=== PATIENT | female | born 1940 | race Caucasian/White ===

== ENCOUNTER 2020-09-16 02:28 | Observation (INO) | payer MEDICARE, OTHER ==
[~2020-09-16] VITALS: Ht 160 cm; Wt 57.5 kg
[2020-09-16] MEDS ORDERED: fentaNYL INJECTION 100 MCG/2 ML AMP IVP STA ×2 (02:40→05:04)
[2020-09-16] MEDS ORDERED: ONDANSETRON 4 MG/2 ML (SDV) Z0FRAN ONE (02:51)
--- NOTE | 2020-09-16 02:52 | ED Fall/Injury ---
General Stated Complaint: FALL, (L) HIP/KNEE PAIN Source: patient, family, EMS History of Present Illness Date Seen by Provider: Sep 16, 2020 Time Seen by Provider: 02:30 Initial Comments 80 yo female presenting by EMS after having a fall in the afternoon at home. She has had increasing pain to left hip, thigh and knee throughout the evening and night. She has severe spasm and pain with trying to move her left leg. She denies hitting her head or losing consciousness. She initially was able to get up and bear some weight on her left leg. She denies other injuries. She states the pain feels similar to when she had hip fracture on the right side. Occurred: this afternoon Severity: severe Injuries/Pain Location: lower extremity Context: tripped Loss of Consciousness: no loss of consciousness Modifying Factors: Improves With Immobilization; Worse With Movement Associated Symptoms (Fall): No Abdominal Pain, No Chest Pain, No Confusion, No Dizziness, No Headache, No Lightheadedness; Muscle Spasms; No Nausea/Vomiting, No Neck Pain, No Ringing in Ears, No Seizures, No Shortness of Air, No Slurred Speech; Trouble Walking Allergies and Home Medications Allergies Coded Allergies: No Known Drug Allergies (Unverified , 09/16/20) Patient Home Medication List Home Medication List Reviewed: Yes Review of Systems Review of Systems Constitutional: No chills, No fever Eyes: No Symptoms Reported Ears, Nose, Mouth, Throat: no symptoms reported Respiratory: no symptoms reported Cardiovascular: no symptoms reported Gastrointestinal: no symptoms reported Genitourinary: no symptoms reported Musculoskeletal: see HPI Skin: no symptoms reported Psychiatric/Neurological: No Symptoms Reported Past Hvhaxpx-Cajjng-Ptlvbu Hx Past Med/Social Hx: Reviewed Nursing Past Med/Soc Hx Past Medical History Surgeries: Yes Joint Replacement (right hip) Musculoskeletal: Yes Osteoporosis, Arthritis, Rheumatoid Arthritis Physical Exam Vital Signs Vital Signs - First Documented 09/16/20 02:28 Temp 36.8 Pulse 73 Resp 16 B/P (MAP) 164/76 (105) Pulse Ox 97 O2 Delivery Room Air Capillary Refill : Height, Weight, BMI Height: '" Weight: lbs. oz. kg; BMI Method: General Appearance: WD/WN HEENT: PERRL/EOMI Neck: non-tender, supple Cardiovascular: normal peripheral pulses, regular rate, rhythm, systolic murmur Respiratory: chest non-tender, decreased breath sounds Gastrointestinal: normal bowel sounds, soft, no pulsatile mass Rectal: deferred Extremities: normal capillary refill, pelvis stable, other (left hip pain worse with movement or palpation) Neurologic/Psychiatric: alert, oriented x 3 Skin: warm/dry [employer] Coma Score Best Eye Response: (4) Open Spontaneously Best Verbal Response: (5) Oriented Best Motor Response: (6) Obeys Commands [place] Total: 15 Progress/Results/Core Measures Results/Orders Lab Results Laboratory Tests Test 09/16/20 02:47 Range/Units White Blood Count 9.4 4.3-11.0 10^3/uL Red Blood Count 4.21 L 4.35-5.85 10^6/uL Hemoglobin 14.0 11.5-16.0 G/DL Hematocrit 42 35-52 % Mean Corpuscular Volume 100 H 80-99 FL Mean Corpuscular Hemoglobin 33 25-34 PG Mean Corpuscular Hemoglobin Concent 33 32-36 G/DL Red Cell Distribution Width 13.4 10.0-14.5 % Platelet Count 265 130-400 10^3/uL Mean Platelet Volume 10.7 H 7.4-10.4 FL Immature Granulocyte % (Auto) 0 % Neutrophils (%) (Auto) 83 H 42-75 % Lymphocytes (%) (Auto) 9 L 12-44 % Monocytes (%) (Auto) 7 0-12 % Eosinophils (%) (Auto) 0 0-10 % Basophils (%) (Auto) 1 0-10 % Neutrophils # (Auto) 7.7 1.8-7.8 X 10^3 Lymphocytes # (Auto) 0.8 L 1.0-4.0 X 10^3 Monocytes # (Auto) 0.7 0.0-1.0 X 10^3 Eosinophils # (Auto) 0.0 0.0-0.3 10^3/uL Basophils # (Auto) 0.1 0.0-0.1 10^3/uL Immature Granulocyte # (Auto) 0.0 0.0-0.1 10^3/uL Prothrombin Time 13.2 12.2-14.7 SEC INR Comment 1.0 0.8-1.4 Activated Partial Thromboplast Time 24 24-35 SEC Sodium Level 138 135-145 MMOL/L Potassium Level 3.9 3.6-5.0 MMOL/L Chloride Level 103 98-107 MMOL/L Carbon Dioxide Level 21 21-32 MMOL/L Anion Gap 14 5-14 MMOL/L Blood Urea Nitrogen 11 7-18 MG/DL Creatinine 0.71 0.60-1.30 MG/DL Estimat Glomerular Filtration Rate > 60 BUN/Creatinine Ratio 15 Glucose Level 118 H 70-105 MG/DL Calcium Level 9.0 8.5-10.1 MG/DL Corrected Calcium 9.1 8.5-10.1 MG/DL Total Bilirubin 0.4 0.1-1.0 MG/DL Aspartate Amino Transf (AST/SGOT) 23 5-34 U/L Alanine Aminotransferase (ALT/SGPT) 9 0-55 U/L Alkaline Phosphatase 109 40-136 U/L Total Protein 6.5 6.4-8.2 GM/DL Albumin 3.9 3.2-4.5 GM/DL My Orders Orders - JULIO GAMINO MD Comprehensive Metabolic Panel (09/16/20 02:40) Ua Culture If Indicated (09/16/20 02:40) Ed Iv/Invasive Line Start (09/16/20 02:40) Cbc With Automated Diff (09/16/20 02:40) Ct Pelvis Wo (09/16/20 02:40) Femur 2 View Left (09/16/20 02:40) Partial Thromboplastin Time (09/16/20 02:40) Protime With Inr (09/16/20 02:40) Fentanyl Injection (Sublimaze Injection (09/16/20 02:40) Ondansetron Injection (Zofran Injectio (09/16/20 02:53) Ondansetron Injection (Zofran Injectio (09/16/20 02:51) Ketorolac Injection (Toradol Injection) (09/16/20 04:24) Orphenadrine Inj (Ed Only) (Norflex Inje (09/16/20 04:24) Vital Signs/I&O 09/16/20 02:28 Temp 36.8 Pulse 73 Resp 16 B/P (MAP) 164/76 (105) Pulse Ox 97 O2 Delivery Room Air Progress Progress Note #1: Progress Note obtain basic labs and check CT of pelvis along with femur films to look for fracture or injury to account for her pain. Try fentanyl 50 mcg IV for pain, Zofran 4 mg IV to try and help prevent nausea/vomiting. Progress Note #2: Time: 04:02 Progress Note labs stable without acute significant abnormality. On my review of her left femur she has no acute fracture or dislocation and the hardware from prior hip replacement appears to be intact and in place in the femur. CT pelvis read as no acute fracture. Increased stool in rectum. Despite Fentanyl she was still complaining of severe pain with movement. Progress Note #3: Time: :27 Progress Note pt still having severe pain even with minimal movement and has not been able to get up out of bed due to pain. Will try Toradol and norflex to see if anti- inflammatory with muscle relaxer does better than the fentanyl. D/w Dr. Carlos and if not improved to the point she can go home with meds after this round of medicine will admit for rehab/physical therapy and pain control. Progress Note #4: Time: 05:02 Progress Note pt still with severe pain when she tries to move her leg. She does seem a little more comfortable than before the medicine but she can not move her leg enough to get out of bed or attempt walking at this point. Will proceed with admit for pain control and rehab/PT. If she continues to have such severe pain she might need orthopedic consult or bone scan or other imaging modality to evaluate for fracture or displacement of the hardware from prior hip replacement. Diagnostic Imaging Diagonstic Imaging: CT Plain Films/CT/US/NM/MRI: pelvis Comments No acute fracture. Increased stool burden within the rectum. Read by Dr. Doug Hart MD at [phone] and faxed at [phone] Reviewed: Reviewed [facility] Study Diagonstic Imaging: Xray Plain Films/CT/US/NM/MRI: femur Comments On my review of her left femur she had no acute fracture or dislocation of hardware Departure Communication (Admissions) Time/Spoke to Admitting Phy: 04:27 d/w Dr. Carlos about continued pain for pt so will see how she does with Toradol and Norflex. If not improving to where she can walk and go home will admit to [facility] for pain control, rehab and PT consult. Impression Primary Impression: Left leg pain Additional Impression: Fall at home Qualified Codes: W19.XXXA - Unspecified fall, initial encounter; Y92.009 - Unspecified place in unspecified non-institutional (private) residence as the place of occurrence of the external cause Disposition: 30 STILL A PATIENT Condition: Stable Admissions Decision to Admit Reason: Admit from ER (General) Decision to Admit/Date: Sep 16, 2020 Time/Decision to Admit Time: 04:27 JULIO GAMINO MD Sep 16, 2020 02:52
[2020-09-16] MEDS ORDERED: ONDANSETRON 4 MG/2 ML (SDV) Z0FRAN IVP STA ×2 (02:53→05:04)
[2020-09-16 03:21] LABS: HEMATOCRIT 42 % (35-52); MEAN CORPUSCULAR HEMOGLOBIN 33 PG (25-34); MEAN CORPUSCULAR VOLUME 100 FL (80-99); WHITE BLOOD COUNT 9.4 10^3/uL (4.3-11.0)
[2020-09-16 03:22] LABS: BASOPHILS # (AUTO) 0.1 10^3/uL (0.0-0.1); BASOPHILS % (AUTO) 1 % (0-10); EOSINOPHILS % (AUTO) 0 % (0-10); LYMPHOCYTES # (AUTO) 0.8 X 10^3 (1.0-4.0); LYMPHOCYTES % (AUTO) 9 % (12-44); MEAN CORPUSCULAR HGB CONC 33 G/DL (32-36); MEAN PLATELET VOLUME 10.7 FL (7.4-10.4); MONOCYTES # (AUTO) 0.7 X 10^3 (0.0-1.0); MONOCYTES % (AUTO) 7 % (0-12); NEUTROPHILS # (AUTO) 7.7 X 10^3 (1.8-7.8); NEUTROPHILS % (AUTO) 83 % (42-75); PLATELET COUNT 265 10^3/uL (130-400)
[2020-09-16 03:31] LABS: PROTHROMBIN TIME PATIENT 13.2 SEC (12.2-14.7)
[2020-09-16 03:36] LABS: BUN/CREATININE RATIO 15; CARBON DIOXIDE 21 MMOL/L (21-32); CHLORIDE 103 MMOL/L (98-107); CREATININE SERUM 0.71 MG/DL (0.60-1.30); GFR ESTIMATED > 60; POTASSIUM 3.9 MMOL/L (3.6-5.0); SODIUM 138 MMOL/L (135-145)
[2020-09-16 03:37] LABS: ALANINE AMINOTRANSFERASE 9 U/L (0-55); ALBUMIN 3.9 GM/DL (3.2-4.5); ALKALINE PHOSPHATASE 109 U/L (40-136); BILIRUBIN,TOTAL 0.4 MG/DL (0.1-1.0); GLUCOSE 118 MG/DL (70-105); TOTAL PROTEIN 6.5 GM/DL (6.4-8.2)
[2020-09-16] MEDS ORDERED: ORPHENADRINE 60 MG/2 ML (NORFLEX) AMP (ED ONLY) IVP STA (04:24)
[2020-09-16] MEDS ORDERED: KETOROLAC 30 MG/ML VIAL IVP STA (04:24)
[2020-09-16 06:19] VITALS: BP 148/90
[2020-09-16] MEDS ORDERED: fentaNYL INJECTION 100 MCG/2 ML AMP IVP PRN (06:30)
[2020-09-16] MEDS ORDERED: KETOROLAC 15 MG/ML VIAL IVP PRN (06:30)
[2020-09-16] MEDS ORDERED: ONDANSETRON 4 MG/2 ML (SDV) Z0FRAN IVP PRN (06:30)
--- NOTE | 2020-09-16 06:34 | Diagnostic Imaging Report ---
INDICATION: Left leg injury from a fall AP and lateral views of left thigh show postoperative changes from left hip arthroplasty. There is no acute fracture or dislocation. There is no evidence of loosening. IMPRESSION: Postoperative changes left hip arthroplasty. Left femur otherwise unremarkable. Dictated by: Dictated on workstation # [id number]
[2020-09-16] MEDS: NS IV 1000 ML 1,000 ML IV SCH ×2 (06:35→20:13)
--- NOTE | 2020-09-16 07:24 | Diagnostic Imaging Report ---
EXAMINATION: CT Pelvis without intravenous contrast. TECHNIQUE: Multiple contiguous axial images were obtained through the pelvis without the administration of intravenous contrast. All CT scans use one or more of the following dose optimizing techniques: automated exposure control, MA and/or KvP adjustment based on a patient size and exam type, or iterative reconstruction. HISTORY: fall, left hip pain COMPARISON: Left femur radiograph 09/16/2020. FINDINGS: Visualized portions of the kidneys are normal. There is no hydronephrosis. Urinary bladder is normal. There is moderate amount of stool within the rectal vault. No bowel obstruction. The appendix is normal. No free fluid or air. No pelvic lymphadenopathy. Calcifications of the aorta without aneurysm. There is diffuse osseous demineralization and scattered degenerative changes. Grade 1 anterolisthesis of L5 on S1. Surgical changes from total left hip arthroplasty. No acute fracture, dislocation, or other destructive osseous process. The uterus is surgically absent. IMPRESSION: 1. No acute osseous abnormality of the pelvis. 2. Large stool burden within the rectum. 3. Agree with preliminary interpretation. Dictated by: Dictated on workstation # [id number]
[2020-09-16] MEDS ORDERED: FLU QUAD HIGH DOSE 240 MCG/0.7 ML 2020-21 (FLUZONE) IM ONE (07:30)
[2020-09-16 08:00] VITALS: BP 135/62
[2020-09-16] MEDS ORDERED: ACET-2267 PO (09:57)
[2020-09-16] MEDS ORDERED: CARB15DR OU (09:57)
[2020-09-16] MEDS ORDERED: METH2.5T PO ×2 (09:57)
[2020-09-16] MEDS ORDERED: MULT-1136 PO (09:57)
--- NOTE | 2020-09-16 11:27 | Physical Therapy Evaluation ---
PT Evaluation-General Medical Diagnosis Admission Date Sep 16, 2020 at 04:27 Medical Diagnosis: fall/left LE pain Onset Date: Sep 15, 2020 Therapy Diagnosis Therapy Diagnosis: debility/weakness Precautions Precautions/Isolations: Fall Prevention, Standard Precautions Referral Physician: Breanna Reason for Referral: Evaluation/Treatment Medical History Current History EMS secondary to fall at home resulting in left knee pain Reviewed History: Yes Social History Home: Single Level Current Living Status: Children Entry Into Home: Stairs With Railing PT Steps Into Home: 5 Prior Prior Level of Function SCALE: Activities may be completed with or without assistive devices. 7-Vmpxrbpudt-yxvmpeu completes the activity by him/herself with no assistance from a helper. 5-Set-up or Clean-up Assistance-helper sets up or cleans up; patient completes activity. [place] assists only prior to or following the activity. 4-Supervision or Touching Assistance-helper provides verbal cues and/or touchi ng/steadying and/or contact guard assistance as patient completes activity. Assistance may be provided throughout the activity or intermittently. 3-Partial/Moderate Assistance-helper does LESS THAN HALF the effort. [place] lifts, holds or supports trunk or limbs, but provides less than half the effort. 2-Substantial/Maximal Assistance-helper does MORE THAN HALF the effort. [place] lifts or holds trunk or limbs and provides more than half the effort. 2-Xjemywzhe-rgqjnd does ALL the effort. Patient does none of the effort to complete the activity. Or, the assistance of 2 or more helpers is required for the patient to complete the activity. If activity was not attempted, code reason: 7-Patient Refused. 9-Not Applicable-not attempted and the patient did not perform the activity before the current illness, exacerbation or injury. 10-Not Attempted due to Environmental Limitations-(lack of equipment, weather restraints, etc.). 88-Not Attempted due to Medical Conditions or Safety Concerns. Bed Mobility: 6 Transfers (B,C,W/C): 6 Gait: 6 Stairs: 6 Indoor Mobility (Ambulation): Independent Stairs: Independent Prior Devices Use: Walker PT Evaluation-Current Subjective Patient agrees to PT. Reports 8/10 left knee pain Objective Patient Orientation: Confused Attachments: IV ROM/Strength ROM Lower Extremities bilateral LE WFL Strength Lower Extremities 3+/5 grossly bilateral LE Integumentary/Posture Integumentary refer to nursing notes Bowel Incontinence: No Posture trunk flexed/kyphotic Neuromuscular (Tone, Coordination, Reflexes) grossly intact Sensory Vision: impaired Hearing: Impaired Transfers Sit to Lying (QC): 3 Lying to Sitting/Side of Bed(Q: 3 Sit to Stand (QC): 3 Chair/Gnt-sy-Gfuzv Xfer(QC): 3 Gait Does the Patient Walk?: Yes Mode of Locomotion: Walk Anticipated Mode of Locomotion: Walk Walk 10 feet (QC): 3 Walk 50 ft with 2 Turns(QC): 3 Walk 150 ft (QC): 3 Distance: 150' Gait Assistive Device: FWW Comments/Gait Description slow, extended UE's with FWW use with VC's for body placement in FWW Balance Sitting Static: Normal Sitting Dynamic: Normal Standing Static: Fair Standing Dynamic: Fair Assessment/Needs 80 y.o. female, will benefit from skilled PT to address functional strength and mobility to improve current LOF to safely return to home with family at maximum LOF. Rehab Potential: Fair PT Mcfp Goals Mcfp Goals PT Mcfp Goals Time Frame: Sep 27, 2020 Roll Left & Right (QC): 5 Sit to Lying (QC): 5 Lying-Sitting on Side/Bed(QC): 5 Sit to Stand (QC): 5 Chair/Irp-ro-Sszqi Xfer(QC): 5 Toilet Transfer (QC): 5 Does the Patient Walk: Yes Walk 10 feet (QC): 5 Walk 50ft with 2 Turns (QC): 5 Walk 150 ft (QC): 5 1 Step (curb) (QC): 5 4 Steps (QC): 5 PT Plan Problem List Problem List: Activity Tolerance, Safety Treatment/Plan Treatment Plan: Continue Plan of Care Treatment Plan: Bed Mobility, Education, Functional Activity Haroldo, Functional Strength, Gait, Safety, Therapeutic Exercise, Transfers Treatment Duration: Sep 27, 2020 Frequency: 6 times per week Estimated Hrs Per Day: .25 hour per day Patient and/or Family Agrees t: Yes Time/GCodes Time In: 1020 Time Out: 1036 Total Billed Treatment Time: 16 Total Billed Treatment 1 visit EVModC 16 min SANDRITA ESCALANTE PT Sep 16, 2020 11:27
--- NOTE | 2020-09-16 11:31 | History & Physical ---
HPI History of Present Illness: 80 yo F that presented with uncontrolled hip pain after a fall on Tuesday. Patient states that she felt some dizziness but denies tripping over anything when she fell. Denies any shortness of breath or chest pain. She has had a hip replacement on the left hip previously. She tried some tylenol at home but it was not helping. She is not able to move her hip around like normal and has acute pain with movement. No swelling or bruising. Source: patient Exam Limitations: no limitations Date seen by provider: Sep 16, 2020 Time Seen by Provider: 10:00 Attending Physician Yeimi Carlos MD PCP Melissa Crouch Consult Date of Admission Sep 16, 2020 at 04:27 Home Medications Home Medications Reviewed patient Home Medication Reconciliation performed by pharmacy medication reconciliations railway signal technician and/or nursing. Patients Allergies have been reviewed. Allergies Coded Allergies: No Known Drug Allergies (Unverified , 09/16/20) OKH-Ysvnzt-Jvppkf Hx Patient Social History Living Status: Home Smoking Status: Current Everyday Smoker 2nd Hand Smoke Exposure: Yes Alcohol Use?: No Tobacco type used: Cigarettes Have you traveled recently?: No Past Medical History Rheumatoid Arthritis Previous Left Hip replacement Family Medical History Significant Family History: No Pertinent Family Hx Review of Systems ([facility]) Constitutional: No chills, No malaise; weakness EENTM: no symptoms reported Respiratory: no symptoms reported; No cough, No dyspnea on exertion, No short of breath Cardiovascular: no symptoms reported; No chest pain, No edema, No palpitations Gastrointestinal: no symptoms reported; No abdominal pain, No constipation, No diarrhea, No loss of appetite, No nausea, No vomiting Genitourinary: no symptoms reported; No dysuria, No frequency, No hematuria : No Musculoskeletal: joint pain; No joint swelling; muscle weakness Skin: no symptoms reported; No lesions, No rash Psychiatric/Neurological: No Symptoms Reported Reviewed Test Results Reviewed Test Results Lab Laboratory Tests Test 09/16/20 02:47 Range/Units White Blood Count 9.4 4.3-11.0 10^3/uL Red Blood Count 4.21 L 4.35-5.85 10^6/uL Hemoglobin 14.0 11.5-16.0 G/DL Hematocrit 42 35-52 % Mean Corpuscular Volume 100 H 80-99 FL Mean Corpuscular Hemoglobin 33 25-34 PG Mean Corpuscular Hemoglobin Concent 33 32-36 G/DL Red Cell Distribution Width 13.4 10.0-14.5 % Platelet Count 265 130-400 10^3/uL Mean Platelet Volume 10.7 H 7.4-10.4 FL Immature Granulocyte % (Auto) 0 % Neutrophils (%) (Auto) 83 H 42-75 % Lymphocytes (%) (Auto) 9 L 12-44 % Monocytes (%) (Auto) 7 0-12 % Eosinophils (%) (Auto) 0 0-10 % Basophils (%) (Auto) 1 0-10 % Neutrophils # (Auto) 7.7 1.8-7.8 X 10^3 Lymphocytes # (Auto) 0.8 L 1.0-4.0 X 10^3 Monocytes # (Auto) 0.7 0.0-1.0 X 10^3 Eosinophils # (Auto) 0.0 0.0-0.3 10^3/uL Basophils # (Auto) 0.1 0.0-0.1 10^3/uL Immature Granulocyte # (Auto) 0.0 0.0-0.1 10^3/uL Prothrombin Time 13.2 12.2-14.7 SEC INR Comment 1.0 0.8-1.4 Activated Partial Thromboplast Time 24 24-35 SEC Sodium Level 138 135-145 MMOL/L Potassium Level 3.9 3.6-5.0 MMOL/L Chloride Level 103 98-107 MMOL/L Carbon Dioxide Level 21 21-32 MMOL/L Anion Gap 14 5-14 MMOL/L Blood Urea Nitrogen 11 7-18 MG/DL Creatinine 0.71 0.60-1.30 MG/DL Estimat Glomerular Filtration Rate > 60 BUN/Creatinine Ratio 15 Glucose Level 118 H 70-105 MG/DL Calcium Level 9.0 8.5-10.1 MG/DL Corrected Calcium 9.1 8.5-10.1 MG/DL Total Bilirubin 0.4 0.1-1.0 MG/DL Aspartate Amino Transf (AST/SGOT) 23 5-34 U/L Alanine Aminotransferase (ALT/SGPT) 9 0-55 U/L Alkaline Phosphatase 109 40-136 U/L Total Protein 6.5 6.4-8.2 GM/DL Albumin 3.9 3.2-4.5 GM/DL Physical Exam-([facility]) Physical Exam Vital Signs VS - Last 72 Hours, by Label 09/16/20 09/16/20 09/16/20 09/16/20 02:28 05:16 06:19 06:36 Temp 36.8 36.4 Pulse 73 62 69 Resp 16 18 20 B/P (MAP) 164/76 (105) 131/86 148/90 (109) Pulse Ox 97 96 96 96 O2 Delivery Room Air Room Air Room Air Room Air 09/16/20 08:00 Temp 35.7 Pulse 58 Resp 16 B/P (MAP) 135/62 (86) Pulse Ox 96 O2 Delivery Room Air Capillary Refill : Less Than 3 SecondsLess Than 3 Seconds General Appearance: WD/WN, no apparent distress, thin HEENT: PERRL/EOMI Neck: non-tender, full range of motion, supple Respiratory: chest non-tender, lungs clear, normal breath sounds, no respiratory distress, no accessory muscle use Cardiovascular: normal peripheral pulses, regular rate, rhythm, no edema, no murmur Gastrointestinal: normal bowel sounds, non tender, soft Back: no CVA tenderness, no vertebral tenderness Extremities: no pedal edema, no calf tenderness, normal capillary refill Neurologic/Psychiatric: entertainment reporter II-XII nml as tested, alert, oriented x 3, other (Pain with ROM left hip and knee, normal sensation, decreased strength, no brusising or swelling) Skin: normal color, warm/dry Lymphatic: no adenopathy Assessment/Plan Assessment/Plan Admission Status: Observation (1) Left leg pain Status: Acute Assessment & Plan: - PT/OT ordered, IRF evaluation, Started on norco and colace, reviewed imaging and no acute fracture or displacement (2) Fall at home Status: Acute Qualifiers: Qualified Codes: W19.XXXA - Unspecified fall, initial encounter; Y92.009 - Unspecified place in unspecified non-institutional (private) residence as the place of occurrence of the external cause (3) Rheumatoid arthritis Status: Chronic Assessment & Plan: - Continue home meds (4) DVT prophylaxis Status: Acute Assessment & Plan: - Lovenox Copy Copies To 1: [facility], YEIMI Sanchez MD Sep 16, 2020 11:31
[2020-09-16 12:00] VITALS: BP 104/51
[2020-09-16] MEDS: ENOXAPARIN 40 MG/0.4 ML (LOVENOX) SYR SQ SCH (13:22)
[2020-09-16] MEDS: HYDROcodone/APAP 5 MG/325 MG (LORTAB) TAB PO PRN (15:57)
[2020-09-16 16:00] VITALS: BP 114/65
[2020-09-16 20:00] VITALS: BP 109/61
[2020-09-16] MEDS: DOCUSATE SODIUM 100 MG (COLACE) CAP PO SCH (20:15)
[2020-09-17] VITALS: BP 131/61
[2020-09-17] MEDS: HYDROcodone/APAP 5 MG/325 MG (LORTAB) TAB PO PRN (03:49)
[2020-09-17 04:04] VITALS: BP 144/65
[2020-09-17 08:00] VITALS: BP 158/75
[2020-09-17] MEDS: DOCUSATE SODIUM 100 MG (COLACE) CAP PO SCH ×2 (09:41→21:28)
[2020-09-17] MEDS: NS IV 1000 ML 1,000 ML IV SCH ×2 (10:19→23:27)
--- NOTE | 2020-09-17 11:14 | Physical Therapy Daily Note ---
PT Daily Note-Current Subjective Pt in bed, agreeable with encouragement. No pain rated but grimaces and groans with weight-bearing. Unable to localize pain when asked. Mental Status Patient Orientation: Person, Confused Attachments: IV Transfers SCALE: Activities may be completed with or without assistive devices. 3-Pxvczrknrs-jmzkgvg completes the activity by him/herself with no assistance from a helper. 5-Set-up or Clean-up Assistance-helper sets up or cleans up; patient completes activity. [place] assists only prior to or following the activity. 4-Supervision or Touching Assistance-helper provides verbal cues and/or touching/steadying and/or contact guard assistance as patient completes activity. Assistance may be provided throughout the activity or intermittently. 3-Partial/Moderate Assistance-helper does LESS THAN HALF the effort. [place] lifts, holds or supports trunk or limbs, but provides less than half the effort. 2-Substantial/Maximal Assistance-helper does MORE THAN HALF the effort. [place] l ifts or holds trunk or limbs and provides more than half the effort. 3-Ymbgizgmx-kicezw does ALL the effort. Patient does none of the effort to complete the activity. Or, the assistance of 2 or more helpers is required for the patient to complete the activity. If activity was not attempted, code reason: 7-Patient Refused. 9-Not Applicable-not attempted and the patient did not perform the activity before the current illness, exacerbation or injury. 10-Not Attempted due to Environmental Limitations-(lack of equipment, weather restraints, etc.). 88-Not Attempted due to Medical Conditions or Safety Concerns. Lying to Sitting/Side of Bed(Q: 3 Sit to Stand (QC): 3 (Initially retropulsive) Weight Bearing Right Lower Extremity: Right Full Weight Bearing Left Lower Extremity: Left Full Weight Bearing Gait Training Does the Patient Walk?: Yes Distance: 80 Walk 10 feet (QC): 4 Walk 50 ft with 2 Turns(QC): 4 Walk 150 ft (QC): 88 Walking 10ft/uneven surface-QC: 88 Gait Persons Needed: 1 Gait Assistive Device: FWW Pt ambulated 80' x 1 with FWW with CGA-min A x 1. Pt ambulates with flexed posture, (B) UE extended. Large, unequal step length, VCS to maintain posture within FWW to allow WBing through UE to decrease pain in (L) LE. Limited correction seen with VCS, demonstration. Treatments Gait training with FWW. Pt up in shower chair with NA present post treatment. Assessment Current Status: Fair Progress Pt tolerated fair-well. Very slow, antalgic gait but no miri LOB, CGA for safety. PT [facility] Goals [facility] Goals PT [employer] Goals Time Frame: Sep 27, 2020 Roll Left & Right (QC): 5 Sit to Lying (QC): 5 Lying-Sitting on Side/Bed(QC): 5 Sit to Stand (QC): 5 Chair/Blz-oy-Dmxpp Xfer(QC): 5 Toilet Transfer (QC): 5 Does the Patient Walk: Yes Walk 10 feet (QC): 5 Walk 50ft with 2 Turns (QC): 5 Walk 150 ft (QC): 5 1 Step (curb) (QC): 5 4 Steps (QC): 5 PT Plan Problem List Problem List: Activity Tolerance, Functional Strength, Safety, Balance, Gait, Transfer, Bed Mobility, ROM Treatment/Plan Treatment Plan: Continue Plan of Care Treatment Plan: Bed Mobility, Education, Functional Activity Haroldo, Functional Strength, Gait, Safety, Therapeutic Exercise, Transfers Treatment Duration: Sep 27, 2020 Frequency: 6 times per week Estimated Hrs Per Day: .25 hour per day Patient and/or Family Agrees t: Yes Safety Risks/Education Patient Education: Gait Training Teaching Recipient: Patient Teaching Methods: Demonstration, Discussion Response to Teaching: Reinforcement Needed Discharge Recommendations Barriers to Progress LE pain, Pt confused Time/GCodes Time In: 1013 Time Out: 1036 Total Billed Treatment Time: 23 Total Billed Treatment 1, GT x 23' FARSHAD GORDON DPJuanjose Sep 17, 2020 11:14
[2020-09-17] MEDS: ENOXAPARIN 40 MG/0.4 ML (LOVENOX) SYR SQ SCH (11:51)
[2020-09-17 12:00] VITALS: BP 132/55
--- NOTE | 2020-09-17 15:05 | Progress Note ---
Subjective Subjective/Events-last exam Patient doing well this AM. Up walking with PT with minimal help. Tolerating PO diet. Review of Systems Pulmonary: No Dyspnea, No Cough Cardiovascular: No: Chest Pain, Palpitations Gastrointestinal: No: Nausea, Vomiting, Abdominal Pain Musculoskeletal: leg pain Neurological: Weakness, Incoordination Objective Exam Last Set of Vital Signs Vital Signs Date Time Temp Pulse Resp B/P (MAP) Pulse Ox O2 Delivery O2 Flow Rate FiO2 09/17/20 12:00 35.8 55 18 132/55 (80) 96 Room Air Capillary Refill : Less Than 3 SecondsLess Than 3 Seconds I&O Intake and Output 09/16/20 23:59 Intake Total 1480 ml Output Total 150 ml Balance 1330 ml Intake Oral 1480 ml Output Urine Total 150 ml # Voids 2 Daily Weight Change Unsure General: Alert, Oriented X3, No Acute Distress Lungs: Clear to Auscultation, Normal Air Movement Heart: Regular Rate, No Murmurs Abdomen: Normal Bowel Sounds, Soft, No Tenderness, No Masses Extremities: No Edema, No Tenderness/Swelling Neuro: Normal Speech, Sensation Intact, Cranial Nerves 3-12 NL, Other (slow gait) Psych/Mental Status: Mental Status NL, Mood NL Assessment/Plan Assessment/Plan (1) Left leg pain Status: Acute Assessment & Plan: - PT/OT ordered, IRF evaluation, Started on norco and colace, reviewed imaging and no acute fracture or displacement 09/17: IRF denied patient, will continue to work with PT, plan for home tomorrow with for PT (2) Fall at home Status: Acute Qualifiers: Qualified Codes: W19.XXXA - Unspecified fall, initial encounter; Y92.009 - Unspecified place in unspecified non-institutional (private) residence as the place of occurrence of the external cause (3) Rheumatoid arthritis Status: Chronic Assessment & Plan: - Continue home meds (4) DVT prophylaxis Status: Acute Assessment & Plan: - YEIMI Moya MD Sep 17, 2020 15:04
[2020-09-17 15:50] VITALS: BP 125/60
[2020-09-17 19:54] VITALS: BP 143/70
[2020-09-18] VITALS: BP 137/63
[2020-09-18 04:00] VITALS: BP 141/68
[2020-09-18 08:00] VITALS: BP 167/77
[2020-09-18] MEDS: DOCUSATE SODIUM 100 MG (COLACE) CAP PO SCH (08:43)
[2020-09-18] MEDS ORDERED: ACETAMINOPHEN 500 MG TAB (TYLENOL) PO PRN (09:45)
--- NOTE | 2020-09-18 09:53 | Physical Therapy Daily Note ---
PT Daily Note-Current Subjective Patient denies knee pain on this date. Agrees to PT. Patient states, she hopes to go home today. Mental Status Patient Orientation: Normal For Age Transfers SCALE: Activities may be completed with or without assistive devices. 4-Atpnbdzfuw-xcjpmfh completes the activity by him/herself with no assistance from a helper. 5-Set-up or Clean-up Assistance-helper sets up or cleans up; patient completes activity. [place] assists only prior to or following the activity. 4-Supervision or Touching Assistance-helper provides verbal cues and/or touching/steadying and/or contact guard assistance as patient completes activity. Assistance may be provided throughout the activity or intermittently. 3-Partial/Moderate Assistance-helper does LESS THAN HALF the effort. [place] lifts, holds or supports trunk or limbs, but provides less than half the effort. 2-Substantial/Maximal Assistance-helper does MORE THAN HALF the effort. [place] lifts or holds trunk or limbs and provides more than half the effort. 5-Lqudouzvf-ucfdyt does ALL the effort. Patient does none of the effort to complete the activity. Or, the assistance of 2 or more helpers is required for the patient to complete the activity. If activity was not attempted, code reason: 7-Patient Refused. 9-Not Applicable-not attempted and the patient did not perform the activity before the current illness, exacerbation or injury. 10-Not Attempted due to Environmental Limitations-(lack of equipment, weather restraints, etc.). 88-Not Attempted due to Medical Conditions or Safety Concerns. Sit to Stand (QC): 4 Toilet Transfer (QC): 4 Weight Bearing Right Lower Extremity: Right Full Weight Bearing Left Lower Extremity: Left Full Weight Bearing Gait Training Does the Patient Walk?: Yes Distance: 200' Walk 10 feet (QC): 4 Walk 50 ft with 2 Turns(QC): 4 Walk 150 ft (QC): 4 Gait Assistive Device: FWW slow, steady with no deviation Assessment patient much improved on this date with denial of knee pain. Plan dismissal to home with family and home health per report and SW. PT Care Home Goals Care Home Goals PT Care Home Goals Time Frame: Sep 27, 2020 Roll Left & Right (QC): 5 Sit to Lying (QC): 5 Lying-Sitting on Side/Bed(QC): 5 Sit to Stand (QC): 5 Chair/Kcr-zv-Diwua Xfer(QC): 5 Toilet Transfer (QC): 5 Does the Patient Walk: Yes Walk 10 feet (QC): 5 Walk 50ft with 2 Turns (QC): 5 Walk 150 ft (QC): 5 1 Step (curb) (QC): 5 4 Steps (QC): 5 PT Plan Treatment/Plan Treatment Plan: Continue Plan of Care Treatment Plan: Bed Mobility, Education, Functional Activity [place], Functional Strength, Gait, Safety, Therapeutic Exercise, Transfers Treatment Duration: Sep 27, 2020 Frequency: 6 times per week Estimated Hrs Per Day: .25 hour per day Patient and/or Family Agrees t: Yes Time/GCodes Time In: 929 Time Out: 944 Total Billed Treatment Time: 15 Total Billed Treatment 1 visit FA 15 min SANDRITA ESCALANTE PT Sep 18, 2020 09:53
[2020-09-18] MEDS ORDERED: BISACODYL 10 MG SUPP (DULCOLAX) PR NR (10:45)
[2020-09-18] MEDS: ENOXAPARIN 40 MG/0.4 ML (LOVENOX) SYR SQ SCH (11:55)
[2020-09-18 12:00] VITALS: BP 164/72
--- NOTE | 2020-09-18 12:04 | Discharge Summary ---
Diagnosis/Chief Complaint Date of Admission Sep 16, 2020 at 04:27 Date of Discharge 09/18/2020 Admission Diagnosis Admission Diagnosis See Below Discharge Diagnosis See Problem list Problems/Diagnosis: (1) Left leg pain Assessment & Plan: - PT/OT ordered, IRF evaluation, Started on norco and colace, reviewed imaging and no acute fracture or displacement 09/17: IRF denied patient, will continue to work with PT, plan for home tomorrow with HH for PT 09/18: Home today with HH Status: Acute (2) Fall at home Qualifiers: Qualified Codes: W19.XXXA - Unspecified fall, initial encounter; Y92.009 - Unspecified place in unspecified non-institutional (private) residence as the place of occurrence of the external cause Status: Acute (3) Rheumatoid arthritis Assessment & Plan: - Continue home meds Status: Chronic (4) DVT prophylaxis Assessment & Plan: - Lovenox Status: Acute Chief Complaint/HPI Chief Complaint/HPI 80 yo F that presented with uncontrolled hip pain after a fall on Tuesday. Patient states that she felt some dizziness but denies tripping over anything when she fell. Denies any shortness of breath or chest pain. She has had a hip replacement on the left hip previously. She tried some tylenol at home but it was not helping. She is not able to move her hip around like normal and has acute pain with movement. No swelling or bruising. Discharge Summary-Simple/Stand Consultations Discharge Physical Examination Allergies: Coded Allergies: No Known Drug Allergies (Unverified , 09/16/20) Vitals & I&Os Vital Sign - Last 12Hours Date Time Temp Pulse Resp B/P (MAP) Pulse Ox O2 Delivery O2 Flow Rate FiO2 09/18/20 08:00 95 Room Air 09/18/20 08:00 35.8 78 18 167/77 (107) Intake and Output 09/18/20 00:00 Intake Total 1520 ml Balance 1520 ml General Appearance: Alert, Oriented X3, Cooperative, No Acute Distress Respiratory: Clear to Auscultation, Normal Air Movement Cardiovascular: Regular Rate, No Murmurs Abdominal: Normal Bowel Sounds, Soft, No Tenderness, No Masses Extremities: No Edema, No Tenderness/Swelling Neuro: Normal Speech, Sensation Intact, Cranial Nerves 3-12 NL, Other (Slow gait) Hospital Course Was the Problem List Reviewed?: Yes See final discharge diagnosis. Discussion & Recommendations 80 yo F with left hip and leg pain after fall. Patient has been up with PT and been doing well. Has walker at home and instructed to use it for safety. Will D/c home with close f.u with PCP. Discharge Condition at discharge Stable Instructions to patient/family Please see electronic discharge instructions given to patient. Discharge Medications Reviewed and agree with Discharge Medication list on patient's Discharge Instruction sheet YEIMI KOLB MD Sep 18, 2020 12:04
--- NOTE | 2020-09-18 12:22 | Discharge Summary ---
Discharge Summary Reconcile Patient Problems Problems Reviewed?: Yes Instructions for Patient Via [employer] [facility], Assessment/Instructions Left Leg pain Fall Debility RA Advanced Age Physician to follow Patient: Buddy Discharge Diet for Home: ADA Diet Hospital Course Date of Admission: Sep 16, 2020 at 04:27 Admission Diagnosis : Family Physician/Provider: Melissa Crouch Date of Discharge: 09/18/20 Discharge Diagnosis: Left Leg Pain Fall Debility Advanced Age Hospital Course: 80 yo that presented with left leg pain following a fall. She was seen by PT and was doing better but required walker. Will send patient home with Labs and Pending Lab Test: Home Meds Active Reported Refresh Tears (Carboxymethylcellulose Sodium) 15 Ml Drops 2 Drops OU PRN PRN Tylenol Extra Strength (Acetaminophen) 500 Mg Tablet 500 Mg PO DAILY Multivitamin 1 Each Tablet 1 Each PO DAILY Methotrexate (Methotrexate Sodium) 2.5 Mg Tablet 2.5 Mg PO WED TAKES 2 (2.5MG) TABS ON TUESDAY AND TUESDAY ALSO TAKES 1 (2.5MG) TAB ON TUESDAY Methotrexate (Methotrexate Sodium) 2.5 Mg Tablet 5 Mg PO TUE,TUE TAKES 2 (2.5MG) TABS ON TUESDAY AND TUESDAY ALSO TAKES 1 (2.5MG) TAB ON TUESDAY Patient Allergies: Coded Allergies: No Known Drug Allergies (Unverified , 09/16/20) Continued Medications: Acetaminophen (Tylenol Extra Strength) 500 Mg Tablet 500 MG PO DAILY, TAB Carboxymethylcellulose Sodium (Refresh Tears) 15 Ml Drops 2 DROPS OU PRN PRN for DRY EYES, DROPS Methotrexate Sodium (Methotrexate) 2.5 Mg Tablet 5 MG PO TUE,TUE, TAB TAKES 2 (2.5MG) TABS ON TUESDAY AND TUESDAY ALSO TAKES 1 (2.5MG) TAB ON TUESDAY Methotrexate Sodium (Methotrexate) 2.5 Mg Tablet 2.5 MG PO WED, TAB TAKES 2 (2.5MG) TABS ON TUESDAY AND TUESDAY ALSO TAKES 1 (2.5MG) TAB ON TUESDAY Multivitamin (Multivitamin) 1 Each Tablet 1 EACH PO DAILY, TAB Home Health Need/Face to Face Date of Face to Face: Sep 18, 2020 Clinical Findings: Generalized weakness and fatigue, Muscle weakness, Unsteady gait I have seen Pt [id number]: Yes Discharged To: Home Diagnosis/Conditions: See Above Patient is Homebound due to: Lars fall risk due to instabilty, Muscle weakness, Pain w/ambulation Homebound Status Due to the above stated illness, injury or surgical procedure (medical condition or diagnosis) and associated clinical findings, the patient is homebound because of his/her inability to leave home except with aid of a supportive device and/or person AND leaving the home requires a considerable and taxing effort or is medically contraindicated. Pt req the following assistanc: Walker Home Health Nursing Orders Home Health Services Order: Nursing Services, Physical Therapy-Evaluate & Treat Home Health Infusion Therapy Line Start Date: Sep 16, 2020 Therapy Orders Therapy Orders: PT to assess for OT Therapy Specific Orders: Eval assistive deivces, Gait training, Increase strength/endurance Certify Stmt I certify that this patient is under my care and that I, a nurse practitioner or a physician; a elementary assistant principal working with me, had a face to face encounter that -m eets the physician face to face encounter requirements with this patient as dated. Discharge Physical Exam General: Alert, Oriented X3, Cooperative, No Acute Distress HEENT: Mucous Memb Moist/[place] Lungs: Clear to Auscultation, Normal Air Movement Heart: Regular Rate, No Murmurs Abdomen: Normal Bowel Sounds, Soft, No Tenderness, No Masses Extremities: No Edema, No Tenderness/Swelling Neuro: Normal Speech, Sensation Intact, Cranial Nerves 3-12 NL YEIMI KOLB MD Sep 18, 2020 12:16
[2020-09-18 15:51] VITALS: BP 159/72
== END 2020-09-18 12:05 | disposition home or self-care (01) ==
LOC: ER FS 02:32 → UNDOADMOB 04:27 → 4TH 04:27 → ER FS 05:33 → 4TH 06:26 → UNDODISOB 09-18 17:51
PROVIDERS: ADMIT Family Medicine; ATTEND Family Medicine
DX: M79.605 Pain in left leg (principal); M06.9 Rheumatoid arthritis, unspecified; R53.81 Other malaise; M81.0 Age-related osteoporosis without current pathological fracture; F17.210 Nicotine dependence, cigarettes, uncomplicated; Z79.899 Other long term (current) drug therapy; W19.XXXA Unspecified fall, initial encounter; Y92.009 Unspecified place in unspecified non-institutional (private) residence as the place of occurrence of the external cause; Z96.643 Presence of artificial hip joint, bilateral
CPT/HCPCS: 36415; 72192; 73552; 80053; 85025; 85610; 85730; 96374; 96375; 96376; 97116; 97162; 97530; 99284; G0008; G0378; 90471; 90662

== ENCOUNTER 2020-10-24 05:38 | Emergency (ER) | payer MEDICARE ==
[~2020-10-24] VITALS: Ht 160 cm; Wt 57.5 kg
[~2020-10-24 05:38] MED LIST: ACET-2267 PO; CARB15DR OU; METH2.5T PO; MULT-1136 PO
[2020-10-24] MEDS ORDERED: fentaNYL INJECTION 100 MCG/2 ML AMP ONE (05:43)
--- NOTE | 2020-10-24 05:57 | ED Fall/Injury ---
General Stated Complaint: FALL Source: patient (OTIS NOLAN DO) Source: patient Exam Limitations: no limitations (MAICOL ONEAL DO) History of Present Illness Date Seen by Provider: Oct 24, 2020 Time Seen by Provider: 05:45 Initial Comments PT ARRIVES [facility]IA [facility] FROM HOME PT STATES SHE WAS GETTING UP TO GO TO THE BATHROOM AND FELL, LANDING ON HER RIGHT ARM. STATES SHE WAS ABLE TO GET HERSELF UP AND GO TO THE BATHROOM C/O PAIN TO RIGHT UPPER ARM STATES SHE HIT HER HEAD ALSO, BUT NO LOSS OF CONSCIOUSNESS OCCURRED APPROXIMATELY 1 HOUR AGO AT HOME FALL WAS NOT WITNESSED NO PAIN TO HEAD OR NECK OR BACK NO CHEST OR ABDOMINAL PAIN NO NEW JOINT PAIN--STATES SHE HAS RHEUMATOID ARTHRITIS, AND HER JOINTS ALWAYS HURT. 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 ETTA DAVINA (OTIS NOLAN DO) Allergies and Home Medications Allergies Coded Allergies: morphine (Verified Adverse Reaction, Unknown, Vomiting, 10/24/20) Home Medications Acetaminophen 500 Mg Tablet, 500 MG PO DAILY, (Reported) Carboxymethylcellulose Sodium 15 Ml Drops, 2 DROPS OU PRN PRN for DRY EYES, (Reported) Hydrocodone/Acetaminophen 1 Each Tablet, 1 TAB PO Q8H PRN for PAIN-MODERATE (5- 7) Prescribed by: MAICOL ONEAL on 10/24/20 0739 Methotrexate Sodium 2.5 Mg Tablet, 5 MG PO TUE,TUE, (Reported) TAKES 2 (2.5MG) TABS ON TUESDAY AND TUESDAY ALSO TAKES 1 (2.5MG) TAB ON TUESDAY Methotrexate Sodium 2.5 Mg Tablet, 2.5 MG PO TUE, (Reported) TAKES 2 (2.5MG) TABS ON TUESDAY AND TUESDAY ALSO TAKES 1 (2.5MG) TAB ON TUESDAY Multivitamin 1 Each Tablet, 1 EACH PO DAILY, (Reported) Ondansetron 4 Mg Tab.rapdis, 4 MG PO Q6H PRN for NAUSEA/VOMITING Prescribed by: MAICOL ONEAL on 10/24/20 0739 Patient Home Medication List Home Medication List Reviewed: Yes (MAICOL ONEAL DO) Review of Systems Review of Systems Constitutional: no symptoms reported Eyes: No Symptoms Reported Ears, Nose, Mouth, Throat: no symptoms reported Respiratory: no symptoms reported Cardiovascular: no symptoms reported Gastrointestinal: no symptoms reported Genitourinary: no symptoms reported Musculoskeletal: see HPI Skin: no symptoms reported Psychiatric/Neurological: No Symptoms Reported (OTIS NOLAN DO) Past Ixefaji-Zsivcc-Frxbis Hx Past Med/Social Hx: Reviewed and Corrections made (OTIS NOLAN DO) Patient Social History Alcohol Use: Denies Use Drug of Choice: DENIES Smoking Status: Current Everyday Smoker Type Used: Cigarettes 2nd Hand Smoke Exposure: Yes (OTIS NOLAN DO) Past Medical History Surgeries: Yes Adenoidectomy, Hysterectomy, Tonsillectomy Respiratory: No Cardiac: No Neurological: No Genitourinary: No Gastrointestinal: Yes Diverticulosis Musculoskeletal: Yes (FRACTURES CHILD--NO SURGERIES) Osteoporosis, Arthritis, Rheumatoid Arthritis, Fractures Endocrine: No HEENT: No Cancer: No Psychosocial: No Integumentary: No (OTIS NOLAN DO) Family Medical History No Pertinent Family Hx (OTIS NOLAN DO) Physical Exam Vital Signs Vital Signs - First Documented (MAICOL ONEAL DO) Vital Signs Capillary Refill : (OTIS NOLAN DO) Height, Weight, BMI Height: '" Weight: lbs. oz. kg; 22.46 BMI Method: General Appearance: WD/WN, no apparent distress HEENT: PERRL/EOMI Neck: non-tender, full range of motion, supple, normal inspection Cardiovascular: regular rate, rhythm, systolic murmur (4/6) Respiratory: chest non-tender, normal breath sounds, no respiratory distress, no accessory muscle use Peripheral Pulses: 2+ Dorsalis Pedis (R), 2+ Left Dors-Pedis (L), 2+ Radial Pulses (R), 2+ Radial Pulses (L) Gastrointestinal: normal bowel sounds, non tender, soft Back: normal inspection, no CVA tenderness, no vertebral tenderness Extremities: normal capillary refill, other (TENDERNESS AND SWELLING TO RIGHT MID HUMERUS AREA. DISTAL MOTOR/SENSORY/VASCULAR INTACT. MILD TENDERNESS TO BILATERAL HIPS AND BILATERAL KNEES--PT STATES IS NORMAL FOR HER AND NOT ANY DIFFERENT THAN NORMAL.) Neurologic/Psychiatric: no motor/sensory deficits, alert, normal mood/affect, oriented x 3 Skin: normal color, warm/dry (OTIS NOLAN DO) [place] Coma Score Best Eye Response: (4) Open Spontaneously Best Verbal Response: (5) Oriented Best Motor Response: (6) Obeys Commands [place] Total: 15 (OTIS NOLAN DO) Progress/Results/Core Measures Results/Orders My Orders Orders - MAICOL ONEAL DO Shoulder Immoblizer (10/24/20 07:16) (MAICOL ONEAL DO) Medications Given in ED Current Medications Medications Dose Ordered Sig/[place] Route Start Time Stop Time Status Last Admin Dose Admin Fentanyl Citrate 50 mcg ONCE ONCE IVP 10/24/20 06:00 10/24/20 06:01 DC 10/24/20 05:51 50 MCG (MAICOL ONEAL DO) Vital Signs/I&O 10/24/20 10/24/20 05:43 05:43 Temp 36.1 36.1 Pulse 61 61 Resp 16 16 B/P (MAP) 138/79 (98) 138/79 (98) Pulse Ox 96 96 O2 Delivery Room Air Room Air (MAICOL ONEAL DO) Progress Progress Note : Progress Note 0600--CARE TURNED OVER TO DR. ONEAL, ALL STUDIES PENDING. (OTIS NOLAN DO) Progress Note : Time: 07:28 Progress Note Patient with distal humerus fracture on the right. Discussed with Dr. HERNANDEZ who felt that this is outside of his capabilities. Discussed with Dr. Howard orthopedic surgeon Roberto Carlos. He feels that she can be followed up as an outpatient. We will place her in a shoulder immobilizer, provide her with some medication for pain management. She will be discharged home where her son lives with her. She is discharged in stable condition (MAICOL ONEAL DO) Diagnostic Imaging Diagonstic Imaging: Xray Plain Films/CT/US/NM/MRI: other Comments [facility] [place] NAME: SERJIO [facility] REC#: [id number] PT STATUS: REG ER : 1940 PHYSICIAN: OTIS NOLAN DO ADMIT DATE: 10/24/20/ER Draft Date of Exam:10/24/20 HUMERUS, RIGHT, 2 VIEWS INDICATION: Arm pain. COMPARISON: None available TECHNIQUE: 3 radiographs of the right humerus dated 10/24/2020 FINDINGS: Mild degenerative changes of the acromioclavicular joint. Acute spiral fracture of the distal humeral shaft is identified extending to the metaphyseal region. One fracture fragment is slightly medially and anteriorly displaced. Chronic fracture deformity of the proximal right humerus is also noted. Multiple calcifications are seen overlying the right lung. IMPRESSION: Acute mildly comminuted and mildly displaced distal right humeral fracture. Chronic-appearing proximal right humeral fracture. Calcifications overlying the right lung, which may relate to calcified pleural plaques versus chronic granulomatous disease. Partially calcified mass lesions felt less likely. Recommend comparison to prior imaging. Reviewed: Reviewed by Me, Reviewed/Discussed Diagonstic Imaging: CT Comments IMPRESSION: No acute intracranial abnormality with moderate background chronic ischemic changes present. No acute osseous abnormality with advanced multilevel degenerative changes as above. Reviewed: Reviewed by Me, Reviewed/Discussed Diagonstic Imaging: Xray Plain Films/CT/US/NM/MRI: chest Comments IMPRESSION: Partially visualized acute distal right humeral fracture. Multiple calcifications overlying the chest/lungs bilaterally. These could relate to calcified pleural plaques. Given location, costochondral calcifications felt less likely. Partially calcified lung masses would be an additional consideration. Recommend correlation with prior radiography. Reviewed: Reviewed by Me, Reviewed/Discussed Diagonstic Imaging: Xray Plain Films/CT/US/NM/MRI: pelvis Comments [facility] [place] NAME: SERJIO WHITE [facility] REC#: [id number] PT STATUS: REG ER : 1940 PHYSICIAN: OTIS NOLAN DO ADMIT DATE: 10/24/20/ER Draft Date of Exam:10/24/20 PELVIS INDICATION: Fell, pelvic pain. FINDINGS: AP view of the pelvis demonstrates previous left hip arthroplasty. Osteopenia and arterial sclerosis present. No acute fractures are present. IMPRESSION: There are no acute findings to the pelvis (MAICOL ONEAL DO) Departure Impression Primary Impression: Fracture of distal end of humerus Qualified Codes: S42.491A - Other displaced fracture of lower end of right humerus, initial encounter for closed fracture Disposition: 01 HOME, SELF-CARE Condition: Stable Departure-Patient Inst. Referrals: KELLSTADT,[facility] (PCP/Family) Primary Care Physician Patient Instructions: Upper Arm Fracture Add. Discharge Instructions: Please contact to arrange an next week Dr Cresencio Deal [facility] [address] [place], [place] [address] ice to arm. please where immobilizer. Scripts Ondansetron (Ondansetron Odt) 4 Mg Tab.rapdis 4 MG PO Q6H PRN for NAUSEA/VOMITING, #30 TAB 0 Refills Prov: MAICOL ONEAL DO 10/24/20 Hydrocodone/Acetaminophen (Hydrocodone-Acetamin 5-325 mg) 1 Each Tablet 1 TAB PO Q8H PRN for PAIN-MODERATE (5-7), #20 TAB Prov: MAICOL ONEAL DO 10/24/20 OTIS NOLAN DO Oct 24, 2020 05:57 MAICOL ONEAL DO Oct 24, 2020 07:31
[2020-10-24] MEDS ORDERED: fentaNYL INJECTION 100 MCG/2 ML AMP IVP ONE (06:00)
--- NOTE | 2020-10-24 07:15 | Diagnostic Imaging Report ---
PROCEDURE: CT head and CT cervical spine without contrast. TECHNIQUE: Multiple contiguous axial images were obtained through the brain and cervical spine without the use of intravenous contrast. Sagittal and coronal reformations through the cervical spine were then performed. Auto Exposure Controls were utilized during the CT exam to meet ALARA standards for radiation dose reduction. INDICATION: Trauma. COMPARISON: None available. FINDINGS: No intracranial hemorrhage. No intracranial mass, mass effect, midline shift, herniation, hydrocephalus, or extra-axial fluid collection. Significant periventricular and subcortical white matter hypodensities are present, most consistent with moderate background chronic small vessel white matter ischemic disease. No definite CT evidence of an acute ischemic infarction. The paranasal sinuses are clear. The calvarium and extracalvarial soft tissues are unremarkable. [place] right curvature within the partially visualized upper thoracic spine. No significant anterolisthesis or retrolisthesis. Alignment of the atlantooccipital joint is well maintained. Besides endplate degenerative changes, vertebral body heights are well-maintained. Severe disc space height loss at C3/C4, C4/C5, C5/C6, and C6/C7. Moderate disc space height loss at C2/C3. 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 No acute fracture or dislocation. No destructive osseous process. Scattered facet joint degenerative changes and uncovertebral joint hypertrophy. Small disc osteophyte complexes at multiple levels. There is resulting multilevel central canal stenosis, including at C4/C5, C5/C6, and C6/C7. Multilevel neural foraminal stenosis is present, including relatively high-grade bilateral neural foraminal stenosis at C4/C5, C5/C6, and C6/C7. Scattered vascular calcifications are present. No apical pneumothorax. IMPRESSION: No acute intracranial abnormality with moderate background chronic ischemic changes present. No acute osseous abnormality with advanced multilevel degenerative changes as above. Dictated by: Dictated on workstation # [id number]
--- NOTE | 2020-10-24 07:20 | Diagnostic Imaging Report ---
INDICATION: Fall, pain. COMPARISON: None available. TECHNIQUE: Single radiograph of the chest dated 10/24/2020 FINDINGS: The cardiac silhouette is at the upper limits of normal in size. No significant pulmonary vascular congestion. Calcific densities are identified overlying the lungs bilaterally. The lungs otherwise appear clear. No pleural effusion. No pneumothorax. Mild apex right curvature of the thoracic spine. Chronic-appearing proximal right humeral fracture with acute appearing distal right humeral fracture partially visualized. IMPRESSION: Partially visualized acute distal right humeral fracture. Multiple calcifications overlying the chest/lungs bilaterally. These could relate to calcified pleural plaques. Given location, costochondral calcifications felt less likely. Partially calcified lung masses would be an additional consideration. Recommend correlation with prior radiography. Dictated by: Dictated on workstation # [id number]
--- NOTE | 2020-10-24 07:22 | Diagnostic Imaging Report ---
INDICATION: Arm pain. COMPARISON: None available TECHNIQUE: 3 radiographs of the right humerus dated 10/24/2020 FINDINGS: Mild degenerative changes of the acromioclavicular joint. Acute spiral fracture of the distal humeral shaft is identified extending to the metaphyseal region. One fracture fragment is slightly medially and anteriorly displaced. Chronic fracture deformity of the proximal right humerus is also noted. Multiple calcifications are seen overlying the right lung. IMPRESSION: Acute mildly comminuted and mildly displaced distal right humeral fracture. Chronic-appearing proximal right humeral fracture. Calcifications overlying the right lung, which may relate to calcified pleural plaques versus chronic granulomatous disease. Partially calcified mass lesions felt less likely. Recommend comparison to prior imaging. Dictated by: Dictated on workstation # [id number]
--- NOTE | 2020-10-24 07:27 | Diagnostic Imaging Report ---
INDICATION: Fell, pelvic pain. FINDINGS: AP view of the pelvis demonstrates previous left hip arthroplasty. Osteopenia and arterial sclerosis present. No acute fractures are present. IMPRESSION: There are no acute findings to the pelvis. Dictated by: Dictated on workstation # [id number]
[2020-10-24] MEDS ORDERED: ACHD5005 PO (07:38)
[2020-10-24] MEDS ORDERED: ONDA4TAB11 PO (07:39)
[2020-10-24 08:57] VITALS: BP 122/87
== END 2020-10-24 08:57 | disposition home or self-care (01) ==
LOC: EDUNIT# 05:38 → ER 05:40
DX: S42.341A Displaced spiral fracture of shaft of humerus, right arm, initial encounter for closed fracture (principal); F17.210 Nicotine dependence, cigarettes, uncomplicated; Z88.5 Allergy status to narcotic agent; W22.8XXA Striking against or struck by other objects, initial encounter
CPT/HCPCS: 70450; 71045; 72125; 72170; 73060; 99283; L3650

== ENCOUNTER 2021-05-27 03:02 | Emergency (ER) | payer MEDICARE ==
[~2021-05-27 03:02] MED LIST changes: +ACHD5005 PO; +ONDA4TAB11 PO
--- NOTE | 2021-05-27 03:14 | ED Fall/Injury ---
General Chief Complaint: Trauma-Non Activation Stated Complaint: FALL Source: patient Exam Limitations: no limitations History of Present Illness Date Seen by Provider: May 27, 2021 Time Seen by Provider: 03:04 Initial Comments 80-year-old female with past medical history of rheumatoid arthritis on methotrexate, osteoporosis, and frequent falls coming in after she had a mechanical fall roughly 2 hours ago while going to the bathroom. She fell backwards and hurt her left knee. She is having pain that is severe with straightening it is better when she is not moving it. It is sharp and in the anterior portion of her knee. She is otherwise denying any other acute complaints. She did not hit her head or pass out. No nausea or vomiting. No weakness or numbness. Does not take any blood thinners. Allergies and Home Medications Allergies Coded Allergies: morphine (Verified Adverse Reaction, Unknown, Vomiting, 10/24/20) Patient Home Medication List Home Medication List Reviewed: Yes Acetaminophen (Tylenol Extra Strength) 500 Mg Tablet, 500 MG PO DAILY, (Reported) Entered as Reported by: DEAN LIANG on 09/16/2057 Carboxymethylcellulose Sodium (Refresh Tears) 15 Ml Drops, 2 DROPS OU PRN PRN for DRY EYES, (Reported) Entered as Reported by: DEAN LIANG on 09/16/20 0957 Hydrocodone/Acetaminophen (Hydrocodone-Acetamin 5-325 mg) 1 Each Tablet, 1 TAB PO Q8H PRN for PAIN-MODERATE (5-7) Prescribed by: MAICOL ONEAL on 10/24/20 0739 Methotrexate Sodium (Methotrexate) 2.5 Mg Tablet, 5 MG PO MON,FRI, (Reported) Entered as Reported by: DEAN LIANG on 09/16/2057 Methotrexate Sodium (Methotrexate) 2.5 Mg Tablet, 2.5 MG PO WED, (Reported) Entered as Reported by: DEAN LIANG on 09/16/20 0957 Multivitamin (Multivitamin) 1 Each Tablet, 1 EACH PO DAILY, (Reported) Entered as Reported by: DEAN LIANG on 09/16/2057 Ondansetron (Ondansetron Odt) 4 Mg Tab.rapdis, 4 MG PO Q6H PRN for NAUSEA/VOMITING Prescribed by: MAICOL ONEAL on 10/24/20 0739 Review of Systems Review of Systems Constitutional: No chills, No fever Eyes: No Symptoms Reported Ears, Nose, Mouth, Throat: no symptoms reported Respiratory: No cough, No short of breath Cardiovascular: No chest pain Gastrointestinal: No abdominal pain, No nausea, No vomiting Genitourinary: No dysuria : No Musculoskeletal: No back pain; joint pain (left knee) Skin: No rash Psychiatric/Neurological: No Symptoms Reported All Other Systems Reviewed Negative Unless Noted: Yes Past Uspaydn-Omqnwy-Adniqo Hx Patient Social History Tobacco Use?: Yes Immunizations Up To Date Tetanus Booster (TDap): Unknown Past Medical History Surgeries: Yes Adenoidectomy, Hysterectomy, Tonsillectomy Respiratory: No Cardiac: No Neurological: No Genitourinary: No Gastrointestinal: Yes Diverticulosis Musculoskeletal: Yes (FRACTURES CHILD--NO SURGERIES) Osteoporosis, Arthritis, Rheumatoid Arthritis, Fractures Endocrine: No HEENT: No Cancer: No Psychosocial: No Integumentary: No Family Medical History No Pertinent Family Hx Physical Exam Vital Signs Vital Signs - First Documented 05/27/21 03:05 Pulse 80 Resp 18 B/P (MAP) 174/76 (108) Pulse Ox 97 O2 Delivery Room Air Capillary Refill : Height, Weight, BMI Height: '" Weight: lbs. oz. kg; 22.00 BMI Method: General Appearance: WD/WN, no apparent distress HEENT: PERRL/EOMI, normal ENT inspection, pharynx normal Neck: non-tender, full range of motion, supple, normal inspection Cardiovascular: regular rate, rhythm, no edema, no murmur Respiratory: chest non-tender, lungs clear, normal breath sounds, no respiratory distress, no accessory muscle use Gastrointestinal: normal bowel sounds, non tender, soft; No distended, No guarding, No rebound Back: normal inspection, no CVA tenderness, no vertebral tenderness Extremities: non-tender, normal inspection, no pedal edema, no calf tenderness, normal capillary refill, other (pain with full extension of L knee, lacks about 20 degrees of extension due to pain) Neurologic/Psychiatric: no motor/sensory deficits, alert, normal mood/affect, oriented x 3 Skin: normal color, warm/dry Lymphatic: no adenopathy Progress/Results/Core Measures Results/Orders My Orders Orders - NABILA MORTENSEN MD Knee 3 View Left (05/27/21 03:09) Ct Extremity Lower Left Wo (05/27/21 03:47) Basic Metabolic Panel (05/27/21 05:10) Cbc With Automated Diff (05/27/21 05:10) Fentanyl Inj (Sublimaze Injection) (05/27/21 05:15) Catheter(Urinary) Insert & Ass 03,15 (05/27/21 05:17) Vital Signs/I&O 05/27/21 03:05 Pulse 80 Resp 18 B/P (MAP) 174/76 (108) Pulse Ox 97 O2 Delivery Room Air Progress Progress Note : Progress Note 80-year-old female with above history coming in after mechanical fall with left knee pain. ABCs were intact and vitals were stable on presentation. Physical exam with no focal tenderness specifically around her knee, but she does have pain with extension passively and actively. X-ray ordered of her left knee 3 views. She does not have any midline spinal tenderness in her neck or back. Did not hit her head and does not take blood thinners. An IV was placed and she was given fentanyl for pain control. Knee XR without obvious fracture but she is unable to walk due to pain. CT ordered to assess for occult tibial plateau fracture which she does in fact have laterally and slightly depressed. The patient gets all of her ortho care at [facility] and has had numerous surgeries there recently for fractures so would prefer to go there. Called and talked with Dr. Lemons in ortho who accepted her to go ER to ER given she is a trauma. Diagnostic Imaging Diagonstic Imaging: CT Plain Films/CT/US/NM/MRI: knee Comments left lateral tibial plateau fracture that is mildly depressed Departure Impression Primary Impression: Fall Qualified Codes: W19.XXXA - Unspecified fall, initial encounter Additional Impressions: Left knee pain Qualified Codes: M25.562 - Pain in left knee Tibial plateau fracture, left Qualified Codes: S82.142A - Displaced bicondylar fracture of left tibia, initial encounter for closed fracture Disposition: XFER SHT-TRM HOSP Condition: Stable Transfer Transfer Reason: Exceeds level of care Time Spoke to Accepting Phy: 05:00 Transfer Progress Notes Spoke with Dr. Lemons, Ortho, at 0500 who accepted her as an ER to ER transfer for trauma. Transfer Facility: [facility] Method of Transfer: EMS Departure-Patient Inst. Referrals: KELLSTADT,BESS L [employer] TECHNICIAN (PCP/Family) Primary Care Physician NABILA MORTENSEN MD May 27, 2021 03:14
[2021-05-27] MEDS ORDERED: fentaNYL INJ 100 MCG/2 ML AMP IVP ONE (05:15)
[2021-05-27 06:12] LABS: BASOPHILS % (AUTO) 1 % (0-10); EOSINOPHILS % (AUTO) 0 % (0-10); HEMATOCRIT 45 % (35-52); HEMOGLOBIN 14.7 g/dL (11.5-16.0); LYMPHOCYTES # (AUTO) 0.7 X 10^3 (1.0-4.0); LYMPHOCYTES % (AUTO) 6 % (12-44); MEAN CORPUSCULAR HEMOGLOBIN 34 pg (25-34); MEAN CORPUSCULAR HGB CONC 33 g/dL (32-36); MEAN CORPUSCULAR VOLUME 102 fL (80-99); MEAN PLATELET VOLUME 11.5 fL (9.0-12.2); MONOCYTES % (AUTO) 6 % (0-12); NEUTROPHILS # (AUTO) 10.4 X 10^3 (1.8-7.8); NEUTROPHILS % (AUTO) 87 % (42-75); PLATELET COUNT 225 10^3/uL (130-400); WHITE BLOOD COUNT 12.1 10^3/uL (4.3-11.0)
[2021-05-27 06:13] LABS: BAND NEUTROPHILS 8 %; BASOPHILS # (AUTO) 0.1 10^3/uL (0.0-0.1); LYMPHOCYTES % (MANUAL) 5 %; MONOCYTES # (AUTO) 0.8 X 10^3 (0.0-1.0); MONOCYTES % (MANUAL) 5 %; NEUTROPHILS % (MANUAL) 81 %
[2021-05-27 06:14] LABS: ATYPICAL LYMPHOCYTES 1 %; PLATELET ESTIMATE NORMAL
[2021-05-27 06:17] LABS: CALCIUM 8.9 MG/DL (8.5-10.1); CREATININE SERUM 0.75 MG/DL (0.60-1.30)
[2021-05-27 06:20] LABS: POTASSIUM 4.4 MMOL/L (3.6-5.0)
[2021-05-27 06:55] VITALS: BP 136/68
--- NOTE | 2021-05-27 06:55 | Diagnostic Imaging Report ---
INDICATION: Fall. Left anterior knee pain. FINDINGS: 4 views. There is diffuse osteoporosis. There does appear to be some flattening of the lateral tibial plateau suggesting probable tibial plateau fracture. This does appear new when compared with previous images of 09/16/2020. Lateral tibial plateau and femoral condyles appear intact. The patellofemoral joint appears normal. There is marked chondrocalcinosis. Diffuse osteoporosis. IMPRESSION: There is mild depressed tibial plateau fracture laterally. Dictated by: Dictated on workstation # [id number]
[2021-05-27] MEDS ORDERED: fentaNYL INJ 100 MCG/2 ML AMP IVP STA (07:14)
--- NOTE | 2021-05-27 07:38 | Diagnostic Imaging Report ---
PROCEDURE: CT left lower extremity without contrast. TECHNIQUE: Multiple contiguous axial images were obtained through the left lower extremity without the use of intravenous contrast. Sagittal and coronal reformations were then performed. Auto Exposure Controls were utilized during the CT exam to meet ALARA standards for radiation dose reduction. INDICATION: Knee pain, fracture. COMPARISON: Radiographs from same date FINDINGS: Acute appearing mildly depressed fracturing of the lateral tibial plateau is present. There is approximately 4 mm of depression. No additional fracture. No dislocation. Chondrocalcinosis of the medial and lateral menisci. Small lipohemarthrosis is present. The patella is well seated within the trochlea. Minimal background vascular calcifications. IMPRESSION: Acute mildly depressed lateral tibial plateau fracture. Chondrocalcinosis of the menisci. Lipohemarthrosis. Agree with preliminary interpretation. Dictated by: Dictated on workstation # [id number]
== END 2021-05-27 07:30 | disposition short-term general hospital (02) ==
LOC: EDUNIT# 03:02 → ER FS 03:04
DX: S82.142A Displaced bicondylar fracture of left tibia, initial encounter for closed fracture (principal); W18.30XA Fall on same level, unspecified, initial encounter
CPT/HCPCS: 36415; 51702; 73562; 73700; 80048; 85007; 85027; 96374; 96376

== ENCOUNTER → 2021-08-27 | Outpatient (CLI) | payer MEDICARE ==
--- NOTE | 2021-08-27 14:07 | Diagnostic Imaging Report ---
INDICATION: Frequent falls with left knee pain. EXAMINATION: Left knee 08/27/2021 FINDINGS: 3 views of the knee. Comparison made to 05/27/2021. FINDINGS: There is marked osteopenia which limits evaluation. There is mild loss of height along the lateral tibial plateau stable from previous imaging. No acute fractures are visualized. There are no dislocations. There is minimal suprapatellar joint fluid. There is atherosclerotic disease. 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 IMPRESSION: 1. Chronic changes as above, similar to previous imaging with no definite acute fracture seen however the osteopenia does limit evaluation. If the patient has continued pain or cannot airway further imaging may be warranted. Dictated by: Dictated on workstation # [id number]
== END ==
LOC: RAD FS 13:08
PROVIDERS: ATTEND Nurse Practitioner
DX: M17.12 Unilateral primary osteoarthritis, left knee (principal); M11.262 Other chondrocalcinosis, left knee
CPT/HCPCS: 73562

== ENCOUNTER → 2021-09-23 | Outpatient (CLI) | payer MEDICARE ==
--- NOTE | 2021-09-23 10:59 | Diagnostic Imaging Report ---
INDICATION: Left knee pain. TIME OF EXAM: 10:14 a.m. FINDINGS: Three views of the left knee demonstrate generalized demineralization. There is chondrocalcinosis in the medial compartment. No fracture, desiccation, or effusion is seen. There are vascular calcifications in the femoropopliteal system. IMPRESSION: Chronic changes. No acute bony abnormality is detected. Dictated by: Dictated on workstation # [id number]
== END ==
LOC: RAD FS 10:04
PROVIDERS: ATTEND Nurse Practitioner
DX: S82.142A Displaced bicondylar fracture of left tibia, initial encounter for closed fracture (principal)
CPT/HCPCS: 73562

== ENCOUNTER 2022-04-24 09:25 | Emergency (ER) | payer MEDICARE ==
[~2022-04-24] VITALS: Ht 160 cm; Wt 50.8 kg
--- NOTE | 2022-04-24 09:33 | ED Lower Extremity ---
General Stated Complaint: FALL; LT KNEE INJ History of Present Illness Date Seen by Provider: Apr 24, 2022 Time Seen by Provider: 09:30 Initial Comments 81-year-old female presents with left knee pain and right ankle/upper foot pain. Patient reports that yesterday evening some time she fell. That her knee continues to hurt and her foot hurts. Patient has been walking with her walker. She comes in today just to have it further evaluated to make sure nothing is broken. Patient denies any other injury from the fall. She denies hitting her head or any loss of consciousness. Patient with no other systemic complaint. Allergies and Home Medications Allergies Coded Allergies: morphine (Verified Adverse Reaction, Unknown, Vomiting, 10/24/20) Patient Home Medication List Home Medication List Reviewed: Yes Acetaminophen (Tylenol Extra Strength) 500 Mg Tablet, 500 MG PO DAILY, (Reported) Entered as Reported by: DEAN LIANG on 09/16/20956 Carboxymethylcellulose Sodium (Refresh Tears) 15 Ml Drops, 2 DROPS OU PRN PRN for DRY EYES, (Reported) Entered as Reported by: DEAN LIANG on 09/16/2057 Hydrocodone/Acetaminophen (Hydrocodone-Acetamin 5-325 mg) 1 Each Tablet, 1 TAB PO Q8H PRN for PAIN-MODERATE (5-7) Prescribed by: MAICOL ONEAL on 10/24/20 0739 Methotrexate Sodium (Methotrexate) 2.5 Mg Tablet, 5 MG PO MON,FRI, (Reported) Entered as Reported by: DEAN LIANG on 09/16/2057 Methotrexate Sodium (Methotrexate) 2.5 Mg Tablet, 2.5 MG PO TUE, (Reported) Entered as Reported by: DEAN LIANG on 09/16/2057 Multivitamin (Multivitamin) 1 Each Tablet, 1 EACH PO DAILY, (Reported) Entered as Reported by: DEAN LIANG on 09/16/20 0957 Ondansetron (Ondansetron Odt) 4 Mg Tab.rapdis, 4 MG PO Q6H PRN for NAUSEA/VOMITING Prescribed by: MAICOL ONEAL on 10/24/20 0739 Review of Systems Constitutional: No chills, No fever EENTM: no symptoms reported Respiratory: no symptoms reported Cardiovascular: no symptoms reported Gastrointestinal: no symptoms reported Genitourinary: no symptoms reported Musculoskeletal: see HPI; No back pain; joint pain Skin: no symptoms reported Psychiatric/Neurological: No Symptoms Reported Past Cmplpyf-Cnwapk-Gxfwxo Hx Immunizations Up To Date Tetanus Booster (TDap): Unknown Past Medical History Surgeries: Yes Adenoidectomy, Hysterectomy, Tonsillectomy Respiratory: No Cardiac: No Neurological: No Genitourinary: No Gastrointestinal: Yes Diverticulosis Musculoskeletal: Yes (FRACTURES CHILD--NO SURGERIES) Osteoporosis, Arthritis, Rheumatoid Arthritis, Fractures Endocrine: No HEENT: No Cancer: No Psychosocial: No Integumentary: No Family Medical History No Pertinent Family Hx Physical Exam Vital Signs Vital Signs - First Documented 04/24/22 09:25 Temp 36.2 Pulse 75 Resp 17 B/P (MAP) 160/98 (118) O2 Delivery Room Air Capillary Refill : Height, Weight, BMI Height: '" Weight: lbs. oz. kg; 22.00 BMI Method: General Appearance: thin HEENT: PERRL/EOMI, pharynx normal Neck: full range of motion, supple Cardiovascular: normal peripheral pulses, regular rate, rhythm, no edema Respiratory: lungs clear, normal breath sounds Gastrointestinal: non tender, soft Hips: bilateral hip non-tender Legs: bilateral leg non-tender Knees: right knee non-tender, right knee normal inspection, right knee normal range of motion; left knee pain, left knee soft tissue tenderness Ankles: left ankle non-tender, left ankle normal inspection, left ankle normal range of motion; right ankle soft tissue tenderness Feet: left foot non-tender, left foot normal inspection, left foot normal range of motion; right foot soft tissue tenderness Neurologic/Tendon: normal sensation, normal motor functions Neurologic/Psychiatric: alert, normal mood/affect, oriented x 3 Skin: normal color, warm/dry Progress/Results/Core Measures Results/Orders My Orders Orders - ONEAL,MAICOL L DO Ankle 3 View Right (04/24/22 09:28) Knee 4 View Or > Left (04/24/22 09:28) Jason Bandage (04/24/22 10:05) Vital Signs/I&O 04/24/22 09:25 Temp 36.2 Pulse 75 Resp 17 B/P (MAP) 160/98 (118) O2 Delivery Room Air Progress Progress Note : Progress Note Patient with significant arthritis of both knee and ankle. There is no fracture noted. Will place an Jason wrap. Patient should continue use her walker. She is stable and discharged Diagnostic Imaging Diagonstic Imaging: Xray Plain Films/CT/US/NM/MRI: knee Comments Date of Exam:04/24/22 KNEE 4 VIEW OR > LEFT INDICATION: Knee pain post fall last night. History of previous knee fracture. TECHNIQUE: 4 views of the left knee CORRELATION STUDY: 09/23/2021 FINDINGS: Rather prominent bony demineralization is present. Given patient positioning, alignment grossly anatomic. The joint spaces are somewhat limited evaluation given positioning. Definitive acute fracture however does not appear to be suggested. Patellofemoral alignment is maintained. No significant lipohemarthrosis. IMPRESSION: 1. Suboptimal positioning of the patient. Given limitations, no definite acute bony abnormality left knee. Reviewed: Reviewed by Me, Reviewed/Discussed Diagonstic Imaging: Xray Plain Films/CT/US/NM/MRI: ankle Comments Date of Exam:04/24/22 ANKLE 3 VIEW RIGHT INDICATION: Ankle pain post fall last night TECHNIQUE: Three views of the right ankle CORRELATION STUDY: None FINDINGS: Rather prominent bony demineralization. There is no evidence for acute fracture. There is asymmetric narrowing at the ankle mortise particularly medially. Slight cortical irregularity. Definitive miri osteochondral defect however is not suggested. No significant plantar calcaneal spurring. Soft tissues are unremarkable. IMPRESSION: Negative for acute bony abnormality of the ankle. Advanced degenerative changes at the tibiotalar articulation. Reviewed: Reviewed by Me, Reviewed/Discussed Departure Impression Primary Impression: Left knee pain Qualified Codes: M25.562 - Pain in left knee Additional Impressions: Osteoarthritis of left knee Qualified Codes: M17.12 - Unilateral primary osteoarthritis, left knee Osteoarthritis of right ankle and foot Disposition: 01 HOME, SELF-CARE Condition: Stable Departure-Patient Inst. Referrals: BESS JACK (PCP) Primary Care Physician AFIA SAGASTUME MD (Family) Primary Care Physician Patient Instructions: Osteoarthritis (DC), Knee Pain ED Add. Discharge Instructions: Warm moist heat to right knee as needed for pain 4% topical lidocaine with menthol cream or gel. Use as directed on package as needed for Jason wrap to right knee Please use your walker when ambulating Follow-up with your primary care provider next week if symptoms or not improving by the middle of the week MAICOL ONEAL DO Apr 24, 2022 09:33
--- NOTE | 2022-04-24 09:53 | Diagnostic Imaging Report ---
INDICATION: Ankle pain post fall last night TECHNIQUE: Three views of the right ankle CORRELATION STUDY: None FINDINGS: Rather prominent bony demineralization. There is no evidence for acute fracture. There is asymmetric narrowing at the ankle mortise particularly medially. Slight cortical irregularity. Definitive miri osteochondral defect however is not suggested. No significant plantar calcaneal spurring. Soft tissues are unremarkable. IMPRESSION: Negative for acute bony abnormality of the ankle. Advanced degenerative changes at the tibiotalar articulation. Dictated by: Dictated on workstation # [id number]
--- NOTE | 2022-04-24 09:54 | Diagnostic Imaging Report ---
INDICATION: Knee pain post fall last night. History of previous knee fracture. TECHNIQUE: 4 views of the left knee CORRELATION STUDY: 09/23/2021 FINDINGS: Rather prominent bony demineralization is present. Given patient positioning, alignment grossly anatomic. The joint spaces are somewhat limited evaluation given positioning. Definitive acute fracture however does not appear to be suggested. Patellofemoral alignment is maintained. No significant lipohemarthrosis. IMPRESSION: 1. Suboptimal positioning of the patient. Given limitations, no definite acute bony abnormality left knee. Dictated by: Dictated on workstation # [id number]
[2022-04-24 11:47] VITALS: BP 139/82
== END 2022-04-24 11:47 | disposition home or self-care (01) ==
LOC: EDUNIT# 09:25 → ER FS 09:26
DX: M17.12 Unilateral primary osteoarthritis, left knee (principal); M19.071 Primary osteoarthritis, right ankle and foot
CPT/HCPCS: 73564; 73610

== ENCOUNTER 2022-09-03 13:34 | Inpatient (IN) | payer MEDICARE ==
[~2022-09-03] VITALS: Ht 160 cm; Wt 57.1 kg
[2022-09-03] MEDS: NOREPINEPHRINE 8 MG/250 ML 250 ML IV SCH ×4 (13:45→21:51)
[2022-09-03] MEDS ORDERED: ACETAMINOPHEN 650 MG SUPP (TYLENOL) ONE (13:54)
[2022-09-03 13:58] LABS: BILIRUBIN,URINE NEGATIVE (NEGATIVE); CLARITY,URINE TURBID; COLOR,URINE YELLOW; GLUCOSE, URINE (UA) NEGATIVE (NEGATIVE); KETONES,URINE 1+ (NEGATIVE); LEUKOCYTE ESTERASE ,URINE 2+ (NEGATIVE); NITRITE,URINE NEGATIVE (NEGATIVE); PH,URINE 8.5 (5-9); PROTEIN,URINE 1+ (NEGATIVE)
[2022-09-03] MEDS ORDERED: ACETAMINOPHEN 650 MG SUPP (TYLENOL) PR ONE (14:00)
[2022-09-03] MEDS ORDERED: CEFEPIME INJECTION 2,000 MG in NS (IVPB) 50 ML IV ONE (14:00)
[2022-09-03 14:12] LABS: AMORPHOUS SEDIMENT,UR LARGE AMOR PHOSPHATE /LPF; BACTERIA,URINE LARGE /HPF; SQUAMOUS EPITHELIAL CELL,UR 0-2 /HPF
[2022-09-03 14:14] LABS: BASOPHILS % (AUTO) 0 % (0-10); EOSINOPHILS % (AUTO) 0 % (0-10); HEMATOCRIT 40 % (35-52); HEMOGLOBIN 13.4 g/dL (11.5-16.0); LYMPHOCYTES # (AUTO) 1.1 10^3/uL (1.0-4.0); LYMPHOCYTES % (AUTO) 8 % (12-44); MEAN CORPUSCULAR HEMOGLOBIN 34 pg (25-34); MEAN CORPUSCULAR HGB CONC 34 g/dL (32-36); MEAN CORPUSCULAR VOLUME 100 fL (80-99); MONOCYTES # (AUTO) 0.7 10^3/uL (0.0-1.0); MONOCYTES % (AUTO) 5 % (0-12); NEUTROPHILS # (AUTO) 11.4 10^3/uL (1.8-7.8); NEUTROPHILS % (AUTO) 86 % (42-75); PLATELET COUNT 123 10^3/uL (130-400); WHITE BLOOD COUNT 13.3 10^3/uL (4.3-11.0)
[2022-09-03 14:21] LABS: INR 1.3 (0.8-1.4); PROTHROMBIN TIME PATIENT 16.9 SEC (12.2-14.7)
--- NOTE | 2022-09-03 14:32 | Diagnostic Imaging Report ---
INDICATION: Altered mental status. Unresponsive. COMPARISON: 10/24/2020. FINDINGS: Single frontal radiographic view of the chest was obtained and demonstrates indwelling endotracheal tube with tip below the clavicular heads and above the robbie. Gastric tube is coiled in the stomach. Multiple extraosseous calcifications are again identified projecting over the bilateral lung olivo. These could be pleural based. Small bibasilar effusions are also suspected. There is no large effusion. Lungs are otherwise clear. Cardiac silhouette and pulmonary vasculature are within normal limits. IMPRESSION: 1. Probable small bibasilar effusions. 2. Lines and tubes as above. Dictated by: Dictated on workstation # [id number]
[2022-09-03 14:33] LABS: CREATININE SERUM 2.03 MG/DL (0.60-1.30); POTASSIUM 3.4 MMOL/L (3.6-5.0)
--- NOTE | 2022-09-03 14:33 | Diagnostic Imaging Report ---
CLINICAL INDICATION: Patient is unresponsive. EXAM: Axial CT scan of the brain without IV contrast with coronal and sagittal reformatted images. Auto Exposure Controls were utilized during the CT exam to meet ALARA standards for radiation dose reduction. COMPARISON: CT scan of the head and cervical spine without contrast dated 10/24/2020. FINDINGS: There is no evidence of acute cerebral infarct, intracranial hemorrhage, or gross mass effect. Stable diffuse brain parenchymal volume loss. There is no significant change to the diffuse patchy and confluent areas of low-attenuation white matter changes throughout both cerebral hemispheres. There is normal hannah-white matter distinction. There is no significant midline shift or herniation. There is no evidence of hydrocephalus. The basal cisterns are unremarkable. The skull, extracranial soft tissue, and orbits are unremarkable. The paranasal sinuses are unremarkable. Temporal bones show no significant abnormality. IMPRESSION: Stable CT scan of the brain with no evidence of acute intracranial process. Dictated by: Dictated on workstation # [id number]
[2022-09-03 14:34] LABS: ALBUMIN 2.8 GM/DL (3.2-4.5); BILIRUBIN,TOTAL 0.3 MG/DL (0.1-1.0); CALCIUM 7.7 MG/DL (8.5-10.1); TOTAL PROTEIN 5.6 GM/DL (6.4-8.2)
--- NOTE | 2022-09-03 14:37 | ED General ---
General Chief Complaint: Unresponsive Stated Complaint: UNRESPONSIVE Nursing Triage Note: Patient brought to the ED by EMS for chief complaint of unresponsiveness. Patient intubated by EMS, IVs present bilaterally with NS infusing. Source of Information: Patient, EMS, Old Records Exam Limitations: Other (Patient unresponsive) History of Present Illness Date Seen by Provider: Sep 03, 2022 Time Seen by Provider: 13:35 Initial Comments This 82-year-old woman presents to the emergency room via EMS after being found unresponsive in her bed this morning by her side. She was feeling a little ill last night with a mild cough. This morning her son could not wake her up and her breathing appeared labored. EMS was activated. They found an unresponsive patient with sinus tachycardia, hypotension with initial systolic blood pressures in the 60s, and hypoxia that could not be measured with pulse oximetry in the field. GCS was 3. Patient was intubated in the field. She received etomidate, succinylcholine, and Versed. According to her son, she had recently been on methotrexate for rheumatoid arthritis but currently takes no prescribed medications. She does not presently have a primary care provider. She had been seeing her rheumatoid specialist in [place] but was released from care there because they determined she did not have rheumatoid arthritis. Patient has had severe chronic arthritis and pain problems in her left knee. This has caused significant immobility. Patient is cognitively intact at baseline according to her son. Patient was febrile with a temperature of about 103 for EMS. 2 L of IV fluid were hung by EMS. Fingerstick blood sugar was 150. Oxygen saturation resuscitated to the high 90s with oxygen support and BVM ventilation. Patient was found in her bed, and no trauma was suspected. Son reports patient was recently treated for UTI 3 to 4 weeks ago. EMS reported significantly coarse of breath sounds on their exam, but lungs appear clear now after intubation. Allergies and Home Medications Allergies Coded Allergies: morphine (Verified Adverse Reaction, Unknown, Vomiting, 10/24/20) Patient Home Medication List Home Medication List Reviewed: Yes Acetaminophen (Tylenol Extra Strength) 500 Mg Tablet, 500 MG PO DAILY, (Reported) Entered as Reported by: DEAN LIANG on 09/16/20 0957 Carboxymethylcellulose Sodium (Refresh Tears) 15 Ml Drops, 2 DROPS OU PRN PRN for DRY EYES, (Reported) Entered as Reported by: DEAN LIANG on 1956 Hydrocodone/Acetaminophen (Hydrocodone-Acetamin 5-325 mg) 1 Each Tablet, 1 TAB PO Q8H PRN for PAIN-MODERATE (5-7) Prescribed by: MAICOL ONEAL on 10/24/20738 Methotrexate Sodium (Methotrexate) 2.5 Mg Tablet, 5 MG PO MON,FRI, (Reported) Entered as Reported by: DEAN LIANG on 09/16/20956 Methotrexate Sodium (Methotrexate) 2.5 Mg Tablet, 2.5 MG PO WED, (Reported) Entered as Reported by: DEAN LIANG on 09/16/20956 Multivitamin (Multivitamin) 1 Each Tablet, 1 EACH PO DAILY, (Reported) Entered as Reported by: DEAN LIANG on 09/16/20956 Ondansetron (Ondansetron Odt) 4 Mg Tab.rapdis, 4 MG PO Q6H PRN for NAUSEA/VOMITING Prescribed by: MAICOL ONEAL on 10/24/20738 Review of Systems Review of Systems Constitutional: see HPI EENTM: no symptoms reported Respiratory: see HPI Cardiovascular: see HPI Gastrointestinal: no symptoms reported Genitourinary: see HPI Musculoskeletal: see HPI Skin: no symptoms reported Psychiatric/Neurological: See HPI Hematologic/Lymphatic: No Symptoms Reported Immunological/Allergic: no symptoms reported Past Sxaapxs-Qrvapc-Bzsslm Hx Patient Social History Pt feels they are or have been: No Immunizations Up To Date Tetanus Booster (TDap): Unknown Past Medical History Surgery/Hospitalization HX: osteoarthritis Surgeries: Yes Adenoidectomy, Hysterectomy, Orthopedic, Tonsillectomy Respiratory: No Cardiac: No Neurological: No : No Reproductive Disorders: No Genitourinary: No Gastrointestinal: Yes Diverticulosis Musculoskeletal: Yes (FRACTURES CHILD--NO SURGERIES) Osteoporosis, Arthritis, Fractures Endocrine: No HEENT: No Cancer: No Psychosocial: No Integumentary: No Family Medical History No Pertinent Family Hx Physical Exam-Suspected Sepsis Physical Exam Vital Signs Vital Signs - First Documented 09/03/22 09/03/22 09/03/22 13:34 13:37 16:34 Temp 37.5 Pulse 120 Resp 20 B/P (MAP) 60/24 (36) Pulse Ox 100 O2 Delivery Mechanical Ventilator O2 Flow Rate 50.00 FiO2 50 Capillary Refill : Less Than 3 Seconds Blood Pressure Mean: 36 Height, Weight, BMI Height: '" Weight: lbs. oz. kg; 23.00 BMI Method: General Appearance: WD/WN, Thin, Other (Unresponsive and intubated) HEENT: Normal ENT Inspection, Pharynx Normal, Other (Pupils equally round at about 3 mm) Neck: Normal Inspection; No JVD Respiratory: Lungs Clear, Normal Breath Sounds, No Accessory Muscle Use, Other (Intubated) Cardiovascular: No Edema, No Murmur, Tachycardia Gastrointestinal: Soft; No Distended Extremity: Normal Inspection, Pedal Edema Neurologic/Psychiatric: Other (Unresponsive and intubated) Skin: normal color, warm/dry Focused Exam Sepsis Stage: Septic Shock Possible Source: Genitouriary Lactate Level 09/03/22 22:45: Lactic Acid Level 3.70*H 09/04/22 03:30: Lactic Acid Level 3.79*H 09/04/22 05:30: Lactic Acid Level 3.10*H Time of Focused Exam: 15:05 Respiratory: Lungs Clear, Other (Intubated on ventilator) Cardiovascular: No Edema, No Murmur, Tachycardia Capillary Refill: Less Than 3 Seconds Peripheral Pulses: 2+ Radial Pulses (L) Skin: normal color, warm/dry Lactic Acid Level Laboratory Tests Test 09/04/22 05:30 Lactic Acid Level 3.10 MMOL/L (0.50-2.00) *H Within 3hrs of presentation: Admin fluids, Admin 30ml/kg IBW due to BMI>30, Admin ABX, Blood cultures prior to ABX's, Focus exam, Lactate level, Vasopressin therapy Procedures/Interventions Date of ETT Placement: Sep 03, 2022 Progress/Results/Core Measures Suspected Sepsis SIRS Temperature: Pulse: 120 Respiratory Rate: 20 Laboratory Tests 09/03/22 13:40: White Blood Count 13.3H 09/04/22 07:00: White Blood Count 18.7H Blood Pressure 60 /24 Mean: 36 09/03/22 22:45: Lactic Acid Level 3.70*H 09/04/22 03:30: Lactic Acid Level 3.79*H 09/04/22 05:30: Lactic Acid Level 3.10*H Laboratory Tests 09/03/22 13:40: Platelet Count 123L 09/03/22 13:55: Creatinine 2.03H, INR Comment 1.3, Total Bilirubin 0.3 09/04/22 03:30: Creatinine 1.75H, Total Bilirubin 0.6 09/04/22 07:00: Platelet Count 16*L Results/Orders Lab Results Laboratory Tests Test 09/03/22 01:20 09/03/22 13:40 09/03/22 13:44 09/03/22 13:47 Range/Units Lactic Acid Level 3.56 *H 6.94 *H 0.50-2.00 MMOL/L White Blood Count 13.3 H 4.3-11.0 10^3/uL Red Blood Count 3.96 3.80-5.11 10^6/uL Hemoglobin 13.4 11.5-16.0 g/dL Hematocrit 40 35-52 % Mean Corpuscular Volume 100 H 80-99 fL Mean Corpuscular Hemoglobin 34 25-34 pg Mean Corpuscular Hemoglobin Concent 34 32-36 g/dL Red Cell Distribution Width 13.6 10.0-14.5 % Platelet Count 123 L 130-400 10^3/uL Mean Platelet Volume 12.0 9.0-12.2 fL Immature Granulocyte % (Auto) 1 % Neutrophils (%) (Auto) 86 H 42-75 % Lymphocytes (%) (Auto) 8 L 12-44 % Monocytes (%) (Auto) 5 0-12 % Eosinophils (%) (Auto) 0 0-10 % Basophils (%) (Auto) 0 0-10 % Neutrophils # (Auto) 11.4 H 1.8-7.8 10^3/uL Lymphocytes # (Auto) 1.1 1.0-4.0 10^3/uL Monocytes # (Auto) 0.7 0.0-1.0 10^3/uL Eosinophils # (Auto) 0.0 0.0-0.3 10^3/uL Basophils # (Auto) 0.0 0.0-0.1 10^3/uL Immature Granulocyte # (Auto) 0.1 0.0-0.1 10^3/uL Neutrophils % (Manual) 89 % Lymphocytes % (Manual) 6 % Monocytes % (Manual) 1 % Band Neutrophils 4 % Platelet Estimate SL DECREASED Percent Immature Platelet Fraction 7.5 0.0-7.6 % Blood Morphology Comment NORMAL Influenza Type A (RT-PCR) Not Detected Not Detecte Influenza Type B (RT-PCR) Not Detected Not Detecte SARS-CoV-2 RNA (RT-PCR) Not Detected Not Detecte Bedside Blood Gas pH (LAB) 7.254 *L 7.310-7.410 Bedside Blood Gas pCO2 (LAB) 27.6 L 41.0-51.0 mmHg Bedside Blood Gas pO2 (LAB) 111 H 80-105 mmHg Bedside Blood Gas HCO3 (LAB) 12.2 *L 23.0-28.0 mmol/L POC Blood Gas Total CO2 Calc 13 L 24-29 mmol/L Bedside Bl Gas O2 Saturation (Calc) 98 95-98 % Bedside Arterial Blood Base Excess -15 L -2-3 mmol/L Urine Color YELLOW Urine Clarity TURBID Urine pH 8.5 5-9 Urine Specific [place] 1.015 L 1.016-1.022 Urine Protein 1+ H NEGATIVE Urine Glucose (UA) NEGATIVE NEGATIVE Urine Ketones 1+ H NEGATIVE Urine Nitrite NEGATIVE NEGATIVE Urine Bilirubin NEGATIVE NEGATIVE Urine Urobilinogen 0.2 < = 1.0 MG/DL Urine Leukocyte Esterase 2+ H NEGATIVE Urine RBC (Auto) TRACE-I H NEGATIVE Urine RBC NONE /HPF Urine WBC 10-25 H /HPF Urine Squamous Epithelial Cells 0-2 /HPF Urine Crystals PRESENT H /LPF Urine Amorphous Sediment LARGE EDWARD PHOSPHATE H /LPF Urine Bacteria LARGE H /HPF Urine Casts NONE /LPF Urine Mucus NEGATIVE /LPF Urine Culture Indicated CULTURE PENDING Test 09/03/22 13:55 09/03/22 15:58 09/03/22 17:34 09/03/22 17:58 Range/Units Prothrombin Time 16.9 H 12.2-14.7 SEC INR Comment 1.3 0.8-1.4 Activated Partial Thromboplast Time 28 24-35 SEC Sodium Level 142 135-145 MMOL/L Potassium Level 3.4 L 3.6-5.0 MMOL/L Chloride Level 111 H 98-107 MMOL/L Carbon Dioxide Level 14 L 21-32 MMOL/L Anion Gap 17 H 5-14 MMOL/L Blood Urea Nitrogen 25 H 7-18 MG/DL Creatinine 2.03 H 0.60-1.30 MG/DL Estimat Glomerular Filtration Rate 24 BUN/Creatinine Ratio 12 Glucose Level 123 H 70-105 MG/DL Calcium Level 7.7 L 8.5-10.1 MG/DL Corrected Calcium 8.7 8.5-10.1 MG/DL Total Bilirubin 0.3 0.1-1.0 MG/DL Aspartate Amino Transf (AST/SGOT) 77 H 5-34 U/L Alanine Aminotransferase (ALT/SGPT) 23 0-55 U/L Alkaline Phosphatase 207 H 40-136 U/L Troponin I 29.39 *H <0.30 NG/ML C-Reactive Protein 12.79 H <0.50 MG/DL Total Protein 5.6 L 6.4-8.2 GM/DL Albumin 2.8 L 3.2-4.5 GM/DL Lactic Acid Level 4.44 *H 2.28 *H 0.50-2.00 MMOL/L Glucometer 112 H 70-110 MG/DL Test 09/03/22 19:58 09/03/22 22:45 09/03/22 23:48 09/04/22 03:30 Range/Units Lactic Acid Level 3.83 *H 3.70 *H 3.79 *H 0.50-2.00 MMOL/L Troponin I 75.155 *H 36.867 *H <0.028 NG/ML Glucometer 152 H 70-110 MG/DL Sodium Level 141 135-145 MMOL/L Potassium Level 3.1 L 3.6-5.0 MMOL/L Chloride Level 116 H 98-107 MMOL/L Carbon Dioxide Level 11 L 21-32 MMOL/L Anion Gap 14 5-14 MMOL/L Blood Urea Nitrogen 28 H 7-18 MG/DL Creatinine 1.75 H 0.60-1.30 MG/DL Estimat Glomerular Filtration Rate 28 BUN/Creatinine Ratio 16 Glucose Level 158 H 70-105 MG/DL Calcium Level 6.9 L 8.5-10.1 MG/DL Corrected Calcium 8.1 L 8.5-10.1 MG/DL Total Bilirubin 0.6 0.1-1.0 MG/DL Aspartate Amino Transf (AST/SGOT) 192 H 5-34 U/L Alanine Aminotransferase (ALT/SGPT) 53 0-55 U/L Alkaline Phosphatase 136 40-136 U/L Total Protein 5.1 L 6.4-8.2 GM/DL Albumin 2.5 L 3.2-4.5 GM/DL Test 09/04/22 05:30 09/04/22 07:00 Range/Units Lactic Acid Level 3.10 *H 0.50-2.00 MMOL/L White Blood Count 18.7 H 4.3-11.0 10^3/uL Red Blood Count 3.83 3.80-5.11 10^6/uL Hemoglobin 12.9 11.5-16.0 g/dL Hematocrit 38 35-52 % Mean Corpuscular Volume 98 80-99 fL Mean Corpuscular Hemoglobin 34 25-34 pg Mean Corpuscular Hemoglobin Concent 34 32-36 g/dL Red Cell Distribution Width 13.9 10.0-14.5 % Platelet Count 16 *L 130-400 10^3/uL Mean Platelet Volume 11.0 9.0-12.2 fL Immature Granulocyte % (Auto) 1 % Neutrophils (%) (Auto) 87 H 42-75 % Lymphocytes (%) (Auto) 5 L 12-44 % Monocytes (%) (Auto) 7 0-12 % Eosinophils (%) (Auto) 0 0-10 % Basophils (%) (Auto) 0 0-10 % Neutrophils # (Auto) 16.2 H 1.8-7.8 10^3/uL Lymphocytes # (Auto) 0.9 L 1.0-4.0 10^3/uL Monocytes # (Auto) 1.3 H 0.0-1.0 10^3/uL Eosinophils # (Auto) 0.0 0.0-0.3 10^3/uL Basophils # (Auto) 0.0 0.0-0.1 10^3/uL Immature Granulocyte # (Auto) 0.2 H 0.0-0.1 10^3/uL Percent Immature Platelet Fraction 15.4 H 0.0-7.6 % Micro Results Microbiology 09/03/22 Urine Culture - Preliminary, Resulted Gram Negative Kevin My Orders Orders - JENY MOELLER MD Cbc With Automated Diff (09/03/22 13:41) Comprehensive Metabolic Panel (09/03/22 13:41) Blood Culture (09/03/22 13:41) Sputum Culture (09/03/22 13:41) Urinalysis (09/03/22 13:41) Urine Culture (09/03/22 13:41) Protime With Inr (09/03/22 13:41) Partial Thromboplastin Time (09/03/22 13:41) Chest 1 View Ap/Pa Only (09/03/22 13:41) Ed Iv/Invasive Line Start (09/03/22 13:41) Ed Iv/Invasive Line Start (09/03/22 13:41) Vital Signs Adult Sepsis Patie Q15M (09/03/22 13:41) O2 (09/03/22 13:41) Remove Rings In Anticipation O (09/03/22 13:41) Lactic Acid Analyzer (09/03/22 13:41) Ct Head Wo (09/03/22 13:41) Covid 19 Inhouse Test (09/03/22 13:41) Influenza A And B By Pcr (09/03/22 13:41) Procalcitonin (Pct) (09/03/22 13:41) Crp Fs (09/03/22 13:41) Norepinephrine 8 Mg/250 Ml (Norepinephri (09/03/22 13:45) Troponin I Fs (09/03/22 13:56) Acetaminophen Suppository (Tylenol Suppo (09/03/22 13:54) Acetaminophen Suppository (Tylenol Suppo (09/03/22 14:00) Cefepime Injection (Maxipime Injection) (09/03/22 14:00) Manual Differential (09/03/22 13:40) Rocuronium 5 Ml Syringe (Rocuronium 5 Ml (09/03/22 15:00) Midazolam Injection (Versed Injection) (09/03/22 15:00) Midazolam Injection (Versed Injection) (09/03/22 14:58) Ns Iv 500 Ml (Sodium Chloride 0.9%) (09/03/22 15:15) Ns Iv 500 Ml (Sodium Chloride 0.9%) (09/03/22 15:06) Ekg Tracing (09/03/22 15:12) Aspirin Chewable Tablet (Baby Aspirin Ch (09/03/22 15:45) Enoxaparin Injection (Lovenox Injection) (09/03/22 15:45) Ns (Ivpb) (Sodium C... W/Epinephrine 1 (09/03/22 16:00) Epinephrine (Pyxis Drip Kit) (Epinephrin (09/03/22 15:52) Ns (Ivpb) (Sodium Chloride 0.9%) (09/03/22 15:56) Code/Resuscitation (09/03/22 16:21) Ekg Tracing (09/04/22 07:08) Medications Given in ED Vital Signs/I&O 09/03/22 09/03/22 09/03/22 09/03/22 21:00 21:00 21:43 21:51 Pulse 87 88 84 Resp 29 B/P (MAP) 71/44 101/37 (58) 116/74 119/88 Pulse Ox 97 O2 Delivery Mechanical Ventilator O2 Flow Rate 60.00 09/03/22 09/03/22 09/03/22 09/03/22 22:00 23:00 23:19 23:47 Temp 37.9 Pulse 84 80 78 Resp 29 23 27 B/P (MAP) 114/40 (64) 99/74 (82) Pulse Ox 97 99 99 O2 Delivery Mechanical Ventilator Mechanical Ventilator O2 Flow Rate 60.00 60.00 FiO2 60 09/03/22 09/04/22 09/04/22 09/04/22 23:59 00:00 00:00 01:00 Temp 36.5 Pulse 82 81 Resp B/P (MAP) 106/69 (81) Pulse Ox 97 100 O2 Delivery Mechanical Ventilator Mechanical Ventilator O2 Flow Rate 60.00 FiO2 60 09/04/22 09/04/22 09/04/22 09/04/22 01:00 01:00 02:00 02:35 Temp 38.0 Pulse 81 81 80 75 Resp 28 26 30 B/P (MAP) 121/80 (94) 108/75 (86) 114/64 (81) Pulse Ox 100 100 100 O2 Delivery Mechanical Ventilator Mechanical Ventilator Mechanical Ventilator O2 Flow Rate 60.00 60.00 50.00 09/04/22 09/04/22 09/04/22 09/04/22 02:56 03:50 04:00 04:00 Temp 38.0 Pulse 79 78 Resp 27 B/P (MAP) 118/95 (103) Pulse Ox 100 100 97 O2 Delivery Mechanical Ventilator Mechanical Ventilator O2 Flow Rate 60.00 FiO2 50 60 09/04/22 09/04/22 09/04/22 09/04/22 05:00 06:00 06:27 07:00 Pulse 72 87 75 70 Resp 24 25 B/P (MAP) 139/55 (83) 117/40 (65) 117/40 Pulse Ox 100 100 O2 Delivery Mechanical Ventilator Mechanical Ventilator O2 Flow Rate 60.00 60.00 09/04/22 09/04/22 07:02 07:56 Temp 38.0 Pulse 80 Resp 27 Pulse Ox 100 FiO2 50 09/04/22 00:00 Intake Total 550 ml Balance 550 ml Capillary Refill : Less Than 3 Seconds Blood Pressure Mean: 36 ECG Initial ECG Impression Date: Sep 03, 2022 Initial ECG Impression Time: 13:50 Initial ECG Rate: 113 Initial ECG Rhythm: S.Tach, A Fib/Flutter Comment Sinus tachycardia. There is unusual ST morphology in V4 and V5. Is unclear if this represents any type of ischemia. Possible right ventricular conduction delay. No axis deviation. PVCs noted. EKG : EKG Time: 15:29 Rate: 106 Rhythm: S.Tach Comment Sinus tachycardia with possible ST elevation in V3 and V4. No abnormal intervals or axis deviation. Diagnostic Imaging Diagonstic Imaging: Xray Plain Films/CT/US/NM/MRI: chest Comments Chest x-ray was viewed by me and report reviewed. I independently reviewed the x-ray and compared with prior. There did not seem to be a significant adverse change from prior to suggest an acute pneumonia or other significantly acute p athologic process. See report below for radiologist interpretation. NAME: [facility] REC#: [id number] PT STATUS: REG ER : 1940 PHYSICIAN: JENY MOELLER MD ADMIT DATE: 09/03/22/ER FS Draft Date of Exam:09/03/22 CHEST 1 VIEW AP/PA ONLY INDICATION: Altered mental status. Unresponsive. COMPARISON: 10/24/2020. FINDINGS: Single frontal radiographic view of the chest was obtained and demonstrates indwelling endotracheal tube with tip below the clavicular heads and above the robbie. Gastric tube is coiled in the stomach. Multiple extraosseous calcifications are again identified projecting over the bilateral lung olivo. These could be pleural based. Small bibasilar effusions are also suspected. There is no large effusion. Lungs are otherwise clear. Cardiac silhouette and pulmonary vasculature are within normal limits. IMPRESSION: 1. Probable small bibasilar effusions. 2. Lines and tubes as above. Dictated on workstation # [id number] Dict: 09/03/22 1428 Trans: 09/03/22 1431 [id number] Interpreted by: DHARA MALLORY MD Diagonstic Imaging: CT Plain Films/CT/US/NM/MRI: head Comments NAME: [facility] REC#: [id number] PT STATUS: REG ER : 1940 PHYSICIAN: JENY MOELLER MD ADMIT DATE: 09/03/22/ER FS Draft Date of Exam:09/03/22 CT HEAD WO CLINICAL INDICATION: Patient is unresponsive. EXAM: Axial CT scan of the brain without IV contrast with coronal and sagittal reformatted images. Auto Exposure Controls were utilized during the CT exam to meet ALARA standards for radiation dose reduction. COMPARISON: CT scan of the head and cervical spine without contrast dated 10/24/2020. FINDINGS: There is no evidence of acute cerebral infarct, intracranial hemorrhage, or gross mass effect. Stable diffuse brain parenchymal volume loss. There is no significant change to the diffuse patchy and confluent areas of low-attenuation white matter changes throughout both cerebral hemispheres. There is normal hannah-white matter distinction. There is no significant midline shift or herniation. There is no evidence of hydrocephalus. The basal cisterns are unremarkable. The skull, extracranial soft tissue, and orbits are unremarkable. The paranasal sinuses are unremarkable. Temporal bones show no significant abnormality. IMPRESSION: Stable CT scan of the brain with no evidence of acute intracranial process. Dictated on workstation # [id number] Dict: 09/03/22 1427 Trans: 09/03/22 1432 [id number] Interpreted by: HAYLEY WITT MD Critical Care Note Critical Care Start Time: 13:35 Stop Time: 16:15 Progress Patient arrived intubated. Her respiratory status remained stable and ventilator settings were adjusted with EPAP, rate, and tidal volume titrated down in an effort to help with treatment of hypotension. She received a total of 2.5 L in fluid boluses which completed her 30 mL/kg large-volume fluid bolus for septic shock. Unfortunately, hypotension did not resolve with fluids alone and she required Levophed. Levophed was maximized and epinephrine was added. Patient was presumed to have septic shock from source as urinalysis demonstrated pyuria. Cefepime 2 g IV was administered as initial antibiotic therapy. Labs revealed a significant lactate of 6.9 and troponin of 29. It is unclear if this represents a type II NE or acute primary cardiac event. EKGs obtained were inconsistent with each other. Case was discussed with Dr. Morillo, tester semiconductor packages commercial drone software developer. Patient was not stable for Regional Business Manager at this time. He recommended therapeutic Lovenox injection and aspirin by NG. Both were administered. I reviewed the case with Dr. Heredia as the hospitalist on- call and also gave report to eICU. I communicated the poor prognosis to family and discussed CODE STATUS. Based on patient's prior comments, they elected to make her a no cardiac CODE STATUS. She is remaining intubated for the time being. Patient was excepted for admission at [facility]. EMS was made aware that the patient is not to receive CPR or defibrillation if there is cardiac arrest. Departure Communication (Admissions) Time/Spoke to Admitting Phy: 15:00 Dr. Heredia Time/Spoke to Consulting Phy: 15:05 Dr. Morillo Impression Primary Impression: Septic shock Additional Impressions: Unresponsive Elevated troponin Renal failure Qualified Codes: N19 - Unspecified kidney failure Disposition: ADMITTED INPATIENT Condition: Critical Admissions Decision to Admit Reason: Admit from ER (General) Decision to Admit/Date: Sep 03, 2022 Time/Decision to Admit Time: 15:00 Transfer Transfer Reason: Exceeds level of care Time Spoke to Accepting Phy: 15:00 Transfer Progress Notes Transfer accepted by Dr. Heredia Transfer Time: 16:15 Transfer Facility: [facility] Method of Transfer: EMS Departure-Patient Inst. Referrals: BESS JACK (PCP) Primary Care Physician [facility]/MARIO (Family) Primary Care Physician Copy Copies To 1: [facility]/JENY CYR MD Sep 03, 2022 14:37
[2022-09-03 14:47] LABS: BAND NEUTROPHILS 4 %; LYMPHOCYTES % (MANUAL) 6 %; MONOCYTES % (MANUAL) 1 %; NEUTROPHILS % (MANUAL) 89 %; PLATELET ESTIMATE SL DECREASED; RBC MORPH NORMAL
[2022-09-03] MEDS ORDERED: MIDAZOLAM 2 MG/2 ML (VERSED) VIAL ONE (14:58)
[2022-09-03] MEDS ORDERED: MIDAZOLAM 5 MG/5 ML (VERSED) VIAL IVP ONE (15:00)
[2022-09-03] MEDS ORDERED: ROCURONIUM 10 MG/ML 5 ML SYRINGE IV ONE (15:00)
[2022-09-03] MEDS ORDERED: NS IV 500 ML 500 ML ONE (15:06)
[2022-09-03] MEDS ORDERED: NS IV 500 ML 500 ML IV ONE (15:15)
[2022-09-03] MEDS ORDERED: ASPIRIN 81 MG CHEW (CHILDREN'S ASA) PO ONE (15:45)
[2022-09-03] MEDS ORDERED: ENOXAPARIN 60 MG/0.6 ML (LOVENOX) SYR SC ONE (15:45)
[2022-09-03] MEDS ORDERED: EPINEPHrine (PYXIS DRIP KIT ONLY) 1 MG/ML X 4 AMPS ONE (15:52)
[2022-09-03] MEDS ORDERED: NS (IVPB) 250 ML ONE (15:56)
[2022-09-03] MEDS ORDERED: EPINEPHrine 1 MG INJECTION 4 MG in NS (IVPB) 246 ML IV SCH (16:00)
[2022-09-03 17:25] VITALS: BP 108/75
--- NOTE | 2022-09-03 17:40 | Tele-ICU Progress Note ---
Subjective Date Seen by a Provider: Sep 03, 2022 Subjective/Events-last exam This virtual visit was conducted using real time audio/video. Thank you for asking us to see this patient for respiratory insufficiency due to urosepsis, also large troponin leak. Recent events: Intubated in field. Recd 2.5 L IVF. PMH:arthritis SH: smoking history N FH: Non-contributory ROS: limited by patient's clinical condition, but PE: pale, cachectic. Rectal temp 39.5. 118/53.O2 sat 97% on AC 14/400/40/+5. HEENT: No obvious masses, adenopathy or JVD. Chest: clear to auscultation. CV: RRR S1 S2 No murmur or added sounds. Abd: Non-tender. Bowel sounds Y. : Unremarkable. [place] yY. CORPORATE DIRECTOR/psychiatric: Grossly intact. No obvious focal findings. Extremities:No edema. Capillary refill < 3 seconds. Skin: unremarkable. Results: Elevated WCC 13.3, Creat 2.0, Trop 29.38, Lact 6.84. AB.25/27/111 on 40%. CXR: possible small effs.. Available chart/ vitals / labs / images reviewed. Video assessment done using teleICU camera, rest of exam as per RN. A/P: Respiratory insufficiency: Continue present management with vent. Critical Care: critically ill patient. Cont.abx., Levophed, Epi. Discussed with RN Deborah and ER MD. Asked RN to reach out to eICU if any questions or concerns later. Time spent with patient/coordination of care with other health professionals (mins): 30 Sepsis Event Evaluation Height, Weight, BMI Height: '" Weight: lbs. oz. kg; 23.00 BMI Method: Focused Exam Lactate Level 09/03/22 13:40: Lactic Acid Level 6.94*H 09/03/22 15:58: Lactic Acid Level 4.44*H Time of Focused Exam: 15:05 Lactic Acid Level Laboratory Tests Test 09/03/22 13:40 09/03/22 15:58 Lactic Acid Level 6.94 MMOL/L (0.50-2.00) *H 4.44 MMOL/L (0.50-2.00) *H Exam Exam Patient acknowledged, consented, and participated in this virtual visit which was conducted using real time audio/video Vital Signs Date Time Temp Pulse Resp B/P (MAP) Pulse Ox O2 Delivery O2 Flow Rate FiO2 09/03/22 17:25 112 16 96 60 09/03/22 16:34 135 19 82/42 100 Mechanical Ventilator 50.00 09/03/22 16:03 127 82/42 09/03/22 13:45 120 60/32 09/03/22 13:37 37.5 120 20 60/24 (36) 97 Room Air 09/03/22 13:34 100 Mechanical Ventilator 50 Height & Weight Height: '" Weight: lbs. oz. kg; 23.00 BMI Method: General Appearance: WD/WN, Thin, Other (Unresponsive and intubated) HEENT: Normal ENT Inspection, Pharynx Normal, Other (Pupils equally round at about 3 mm) Neck: Normal Inspection; No JVD Respiratory: Lungs Clear, Other (Intubated on ventilator) Cardiovascular: No Edema, No Murmur, Tachycardia Capillary Refill: Less Than 3 Seconds Peripheral Pulses: 2+ Radial Pulses (L) Extremity: Normal Inspection, Pedal Edema Neurologic/Psychiatric: Other (Unresponsive and intubated) Results Lab Laboratory Tests 09/03/22 13:40 09/03/22 13:55 Assessment/Plan Assessment/Plan See free text Critical Care: Ventilator Management VIKKI MANNING MD Sep 03, 2022 17:40
--- NOTE | 2022-09-03 17:43 | Consultation-Cardiology ---
HPI-Cardiology Cardiology Consultation: Date of Consultation 09/03/22 Date of Admission 09/03/22 Attending Physician Melissa Crouch Admitting Physician Admitting Physician: Jaek Heredia MD Attending Physician: Jake Heredia MD Consulting Physician YAIMA OLIVO JR, MD HPI: Time Seen by a Provider: 17:38 Chief Complaint: REASON FOR CONSULTATION: Acute myocardial infarction. I had the pleasure of seeing Angelina in the intensive care unit at [facility] in [place], [place] this evening. She is currently intubated and sedated. I obtained the majority of the history from the outside ER physician. Apparently, the patient lives with her son and this morning when he went to her room, he could not wake her up. She had apparently started to complain of feeling ill last evening. He called 911 and she was taken to [facility] emergency room. She was intubated in the field. On arrival to [facility] emergency room, she was in shock. Her initial electrocardiogram showed questionable ST elevation in V4 and V5 but in the setting of a left bundle branch type conduction delay. A follow-up electrocardiogram apparently showed anterior ST elevation but this electrocardiogram tracing is not in the computer and I am not able to see this. She was placed on intravenous norepinephrine and epinephrine infusions and transferred to our intensive care unit by ambulance. While in the ambulance, she became agitated and received vecuronium and ketamine boluses. When I saw her, she was sedated and paralyzed on a mechanical ventilator. I was not able to obtain any history from the patient. Certain portions of this document may have been dictated utilizing voice recognition technology. Inherent to this technology, typographical and grammatical errors may exist. As much as I am diligent to identify and correct these mistakes, some errors may remain in the document. Review of Systems-Cardiology Review of Systems Other comments Not obtainable due to her clinical status. KON-Luyoam-Kgelyt Hx Patient Social History 2nd Hand Smoke Exposure: Yes Pt feels they are or have been: No Immunizations Up To Date Tetanus Booster (TDap): Unknown Past Medical History PMH As described under Assessment. Family Medical History Family Medical History: Unknown at this time due to her clinical status. Allergies and Home Medications Allergies Coded Allergies: morphine (Verified Adverse Reaction, Unknown, Vomiting, 10/24/20) Patient Home Medication List Home Medication List Reviewed: Yes Acetaminophen (Tylenol Extra Strength) 500 Mg Tablet, 500 MG PO DAILY, (Reported) Entered as Reported by: DEAN LIANG on 09/16/20956 Carboxymethylcellulose Sodium (Refresh Tears) 15 Ml Drops, 2 DROPS OU PRN PRN for DRY EYES, (Reported) Entered as Reported by: DEAN LIANG on 09/16/20956 Hydrocodone/Acetaminophen (Hydrocodone-Acetamin 5-325 mg) 1 Each Tablet, 1 TAB PO Q8H PRN for PAIN-MODERATE (5-7) Prescribed by: MAICOL ONEAL on 10/24/20738 Methotrexate Sodium (Methotrexate) 2.5 Mg Tablet, 5 MG PO MON,FRI, (Reported) Entered as Reported by: DEAN LIANG on 09/16/20956 Methotrexate Sodium (Methotrexate) 2.5 Mg Tablet, 2.5 MG PO WED, (Reported) Entered as Reported by: DEAN LIANG on 09/16/20956 Multivitamin (Multivitamin) 1 Each Tablet, 1 EACH PO DAILY, (Reported) Entered as Reported by: DEAN LIANG on 09/16/20956 Ondansetron (Ondansetron Odt) 4 Mg Tab.rapdis, 4 MG PO Q6H PRN for NAUSEA/VOMITING Prescribed by: MAICOL ONEAL on 10/24/20738 Exam Vital Signs Vital Signs Date Time Temp Pulse Resp B/P (MAP) Pulse Ox O2 Delivery O2 Flow Rate FiO2 09/03/22 17:25 112 16 96 60 09/03/22 16:34 82/42 Mechanical Ventilator 50.00 09/03/22 13:37 37.5 Physical Exam General: Intubated and sedated. Well nourished and appears stated age. Eye: Conjunctivae are clear. There are no xanthelasma. HENT: Normocephalic. Atraumatic. Carotid pulsations 2/2 without bruits. Neck: Jugular venous pressure does not appear elevated. No thyromegaly appreciated. Respiratory: Symmetrical expansion bilaterally. Coarse breath sounds due to the ventilator. Cardiovascular: Normal rate. Regular rhythm. No murmur. No gallop. Point of maximal impulse is not appear displaced. Good pulses equal in all extremities. No edema. Gastrointestinal: Soft. Normal bowel sounds. Skin: Skin turgor is normal. There is no pallor. Musculoskeletal: No obvious deformities. Neurologic: Intubated and sedated. Psychiatric: Not obtainable due to clinical status. Labs Laboratory Tests Test 09/03/22 13:40 09/03/22 13:44 09/03/22 13:47 09/03/22 13:55 Range/Units White Blood Count 13.3 H 4.3-11.0 10^3/uL Red Blood Count 3.96 3.80-5.11 10^6/uL Hemoglobin 13.4 11.5-16.0 g/dL Hematocrit 40 35-52 % Mean Corpuscular Volume 100 H 80-99 fL Mean Corpuscular Hemoglobin 34 25-34 pg Mean Corpuscular Hemoglobin Concent 34 32-36 g/dL Red Cell Distribution Width 13.6 10.0-14.5 % Platelet Count 123 L 130-400 10^3/uL Mean Platelet Volume 12.0 9.0-12.2 fL Immature Granulocyte % (Auto) 1 % Neutrophils (%) (Auto) 86 H 42-75 % Lymphocytes (%) (Auto) 8 L 12-44 % Monocytes (%) (Auto) 5 0-12 % Eosinophils (%) (Auto) 0 0-10 % Basophils (%) (Auto) 0 0-10 % Neutrophils # (Auto) 11.4 H 1.8-7.8 10^3/uL Lymphocytes # (Auto) 1.1 1.0-4.0 10^3/uL Monocytes # (Auto) 0.7 0.0-1.0 10^3/uL Eosinophils # (Auto) 0.0 0.0-0.3 10^3/uL Basophils # (Auto) 0.0 0.0-0.1 10^3/uL Immature Granulocyte # (Auto) 0.1 0.0-0.1 10^3/uL Neutrophils % (Manual) 89 % Lymphocytes % (Manual) 6 % Monocytes % (Manual) 1 % Band Neutrophils 4 % Platelet Estimate SL DECREASED Percent Immature Platelet Fraction 7.5 0.0-7.6 % Blood Morphology Comment NORMAL Lactic Acid Level 6.94 *H 0.50-2.00 MMOL/L Influenza Type A (RT-PCR) Not Detected Not Detecte Influenza Type B (RT-PCR) Not Detected Not Detecte SARS-CoV-2 RNA (RT-PCR) Not Detected Not Detecte Bedside Blood Gas pH (LAB) 7.254 *L 7.310-7.410 Bedside Blood Gas pCO2 (LAB) 27.6 L 41.0-51.0 mmHg Bedside Blood Gas pO2 (LAB) 111 H 80-105 mmHg Bedside Blood Gas HCO3 (LAB) 12.2 *L 23.0-28.0 mmol/L POC Blood Gas Total CO2 Calc 13 L 24-29 mmol/L Bedside Bl Gas O2 Saturation (Calc) 98 95-98 % Bedside Arterial Blood Base Excess -15 L -2-3 mmol/L Urine Color YELLOW Urine Clarity TURBID Urine pH 8.5 5-9 Urine Specific [place] 1.015 L 1.016-1.022 Urine Protein 1+ H NEGATIVE Urine Glucose (UA) NEGATIVE NEGATIVE Urine Ketones 1+ H NEGATIVE Urine Nitrite NEGATIVE NEGATIVE Urine Bilirubin NEGATIVE NEGATIVE Urine Urobilinogen 0.2 < = 1.0 MG/DL Urine Leukocyte Esterase 2+ H NEGATIVE Urine RBC (Auto) TRACE-I H NEGATIVE Urine RBC NONE /HPF Urine WBC 10-25 H /HPF Urine Squamous Epithelial Cells 0-2 /HPF Urine Crystals PRESENT H /LPF Urine Amorphous Sediment LARGE EDWARD PHOSPHATE H /LPF Urine Bacteria LARGE H /HPF Urine Casts NONE /LPF Urine Mucus NEGATIVE /LPF Urine Culture Indicated CULTURE PENDING Prothrombin Time 16.9 H 12.2-14.7 SEC INR Comment 1.3 0.8-1.4 Activated Partial Thromboplast Time 28 24-35 SEC Sodium Level 142 135-145 MMOL/L Potassium Level 3.4 L 3.6-5.0 MMOL/L Chloride Level 111 H 98-107 MMOL/L Carbon Dioxide Level 14 L 21-32 MMOL/L Anion Gap 17 H 5-14 MMOL/L Blood Urea Nitrogen 25 H 7-18 MG/DL Creatinine 2.03 H 0.60-1.30 MG/DL Estimat Glomerular Filtration Rate 24 BUN/Creatinine Ratio 12 Glucose Level 123 H 70-105 MG/DL Calcium Level 7.7 L 8.5-10.1 MG/DL Corrected Calcium 8.7 8.5-10.1 MG/DL Total Bilirubin 0.3 0.1-1.0 MG/DL Aspartate Amino Transf (AST/SGOT) 77 H 5-34 U/L Alanine Aminotransferase (ALT/SGPT) 23 0-55 U/L Alkaline Phosphatase 207 H 40-136 U/L Troponin I 29.39 *H <0.30 NG/ML C-Reactive Protein 12.79 H <0.50 MG/DL Total Protein 5.6 L 6.4-8.2 GM/DL Albumin 2.8 L 3.2-4.5 GM/DL Test 09/03/22 15:58 09/03/22 17:34 Range/Units Lactic Acid Level 4.44 *H 0.50-2.00 MMOL/L Glucometer 112 H 70-110 MG/DL ECG Impression ECG Comment Sinus tachycardia [address] elevation approximately 1-2 mm. Diagnosis/Problems Diagnosis/Problems (1) ST elevation myocardial infarction (STEMI) of anterolateral wall, initial episode of care Assessment & Plan: It appears as though she may be suffering an acute anterolateral ST elevation myocardial infarction. She was unresponsive on arrival to the outside emergency room and was now sedated and paralyzed on a mechanical ventilator. She is a DNR. She is of advanced age and is currently in shock and has acute kidney injury. All of these clinical factors put her at increased risk of complications from cardiac catheterization. I recommend we treat her with guideline directed medical therapy with aspirin, ticagrelor, enoxaparin, and statin medication. She is not currently a candidate for beta- arsh due to her shock. (2) Shock Assessment & Plan: I suspect she has cardiogenic shock but also possibly septic shock. I have ordered a stat echocardiogram. She is on epinephrine and norepinephrine infusions. I have consulted general surgery for central line placement. (3) Acute kidney injury Assessment & Plan: She has been receiving IV fluids. I suspect the acute kidney injury is multifactorial. Her renal function will need to be followed closely. (4) Acute respiratory failure with hypoxemia Assessment & Plan: Most likely multifactorial. She is currently intubated, sedated and on mechanical ventilation. The primary team will be managing the ventilator along with the eICU. YAIMA OLIVO JR, MD Sep 03, 2022 17:43
[2022-09-03] MEDS ORDERED: DexMEDEtomidine 250 ML DRIP 250 ML IV SCH (17:45)
[2022-09-03] MEDS ORDERED: ACETAMINOPHEN 650 MG SUPP (TYLENOL) PR PRN (17:45)
[2022-09-03] MEDS ORDERED: TICAGRELOR 90 MG TABLET (BRILINTA) PO NR (17:45)
[2022-09-03] MEDS: EPINEPHrine 1 MG INJECTION 4 MG in NS (IVPB) 246 ML IV SCH (19:31)
--- NOTE | 2022-09-03 19:33 | Diagnostic Imaging Report ---
EXAMINATION: Chest radiograph, portable AP view. DATE: 09/03/2022 7:25 PM INDICATION: 82-year-old female, central line placement. COMPARISON: September 03, 2022 at 1400 hours. FINDINGS: The endotracheal tube is approximately 1.1 cm above the robbie. The nasogastric tube is in the stomach. The left internal jugular central venous line overlies the mid SVC. Heart size and mediastinal contours are unchanged. There is no identified pneumothorax. There are are calcified pleural plaques, bilaterally. There is nonspecific left basilar airspace consolidation which is an interval change. There is a deformity of the right proximal humerus. IMPRESSION: 1. New nonspecific left basilar airspace consolidation which may reflect pleural effusion, aspiration other alveolar consolidative process, and/or atelectasis. 2. Support lines and tubes as above. Dictated by: Dictated on workstation # [id number]
--- NOTE | 2022-09-03 19:51 | Consultation - Surgery ---
History of Present Illness History of Present Illness Patient Consulted On(edison/time) 09/03/22 19:46 Date Seen by Provider: Sep 03, 2022 Time Seen by Provider: 19:49 History of Present Illness Consult requested by Dr. Morillo for central line placement. Patient is an 82 year old was found at home and required intubation in the field. Intubated and sedated. Daughter at bedside who is unsure of events. Requiring pressors currently and has peripheral but no central access. Allergies and Home Medications Allergies Coded Allergies: morphine (Verified Adverse Reaction, Unknown, Vomiting, 10/24/20) Patient Home Medication List Home Medication List Reviewed: Yes Acetaminophen (Tylenol Extra Strength) 500 Mg Tablet, 500 MG PO DAILY, (Reported) Entered as Reported by: DEAN LIANG on 09/16/20 0957 Carboxymethylcellulose Sodium (Refresh Tears) 15 Ml Drops, 2 DROPS OU PRN PRN for DRY EYES, (Reported) Entered as Reported by: DEAN LIANG on 09/16/20 0957 Hydrocodone/Acetaminophen (Hydrocodone-Acetamin 5-325 mg) 1 Each Tablet, 1 TAB PO Q8H PRN for PAIN-MODERATE (5-7) Prescribed by: MAICOL ONEAL on 10/24/20 0739 Methotrexate Sodium (Methotrexate) 2.5 Mg Tablet, 5 MG PO MON,FRI, (Reported) Entered as Reported by: DEAN LIANG on 09/16/20 0957 Methotrexate Sodium (Methotrexate) 2.5 Mg Tablet, 2.5 MG PO WED, (Reported) Entered as Reported by: DEAN LIANG on 09/16/20 0957 Multivitamin (Multivitamin) 1 Each Tablet, 1 EACH PO DAILY, (Reported) Entered as Reported by: DEAN LIANG on 09/16/20 0957 Ondansetron (Ondansetron Odt) 4 Mg Tab.rapdis, 4 MG PO Q6H PRN for NAUSEA/VOMITING Prescribed by: MAICOL ONEAL on 10/24/20 0739 Past Ztcyfqu-Foutjb-Wzkybl Hx Patient Social History Drug of Choice: DENIES Type Used: Cigarettes 2nd Hand Smoke Exposure: Yes Immunizations Up To Date Tetanus Booster (TDap): Unknown Surgeries History of Surgeries: Yes Surgeries: Adenoidectomy, Hysterectomy, Orthopedic, Tonsillectomy Respiratory History of Respiratory Disorde: No Cardiovascular History of Cardiac Disorders: No Neurological History of Neurological Disord: No Reproductive System : No Hx Reproductive Disorders: No Genitourinary History of Genitourinary Disor: No Gastrointestinal History of Gastrointestinal Di: Yes Gastrointestinal Disorders: Diverticulosis Musculoskeletal History of Musculoskeletal Dis: Yes (FRACTURES CHILD--NO SURGERIES) Musculoskeletal Disorders: Osteoporosis, Arthritis, Fractures Endocrine History of Endocrine Disorders: No HEENT History of HEENT Disorders: No Cancer History of Cancer: No Psychosocial History of Psychiatric Problem: No Integumentary History of Skin or Integumenta: No Reviewed Nursing Assessment Reviewed/Agree w Nursing PMH: Yes Family Medical History Significant Family History: No Pertinent Family Hx Review of Systems-General ROS-Unable to Obtain: intubated and sedated unable to obtain Physical Exam-General Problems Physical Exam Vital Signs Vital Signs - First Documented 09/03/22 09/03/22 09/03/22 13:34 13:37 16:34 Temp 37.5 Pulse 120 Resp 20 B/P (MAP) 60/24 (36) Pulse Ox 100 O2 Delivery Mechanical Ventilator O2 Flow Rate 50.00 FiO2 50 Capillary Refill : Less Than 3 Seconds General Appearance: thin, other (intubated sedated.) HEENT: PERRL/EOMI, normal ENT inspection Neck: supple, normal inspection Respiratory: chest non-tender, no respiratory distress, no accessory muscle use Cardiovascular: no JVD, tachycardia Gastrointestinal: non tender, soft Rectal: deferred Back: normal inspection, no CVA tenderness Extremities: non-tender Neurologic/Psychiatric: other (intubated sedated) Skin: normal color, warm/dry Lymphatic: no adenopathy Data Review Labs Laboratory Tests 09/03/22 13:40: White Blood Count 13.3H, Red Blood Count 3.96, Hemoglobin 13.4, Hematocrit 40, M courtney Corpuscular Volume 100H, Mean Corpuscular Hemoglobin 34, Mean Corpuscular Hemoglobin Concent 34, Red Cell Distribution Width 13.6, Platelet Count 123L, Mean Platelet Volume 12.0, Immature Granulocyte % (Auto) 1, Neutrophils (%) (Auto) 86H, Lymphocytes (%) (Auto) 8L, Monocytes (%) (Auto) 5, Eosinophils (%) (Auto) 0, Basophils (%) (Auto) 0, Neutrophils # (Auto) 11.4H, Lymphocytes # (Auto) 1.1, Monocytes # (Auto) 0.7, Eosinophils # (Auto) 0.0, Basophils # (Auto) 0.0, Immature Granulocyte # (Auto) 0.1, Neutrophils % (Manual) 89, Lymphocytes % (Manual) 6, Monocytes % (Manual) 1, Band Neutrophils 4, Platelet Estimate SL DECREASED, Percent Immature Platelet Fraction 7.5, Blood Morphology Comment NORMAL, Lactic Acid Level 6.94*H, Influenza Type A (RT-PCR) Not Detected, Influ raphael Type B (RT-PCR) Not Detected, SARS-CoV-2 RNA (RT-PCR) Not Detected 09/03/22 13:44: Bedside Blood Gas pH (LAB) 7.254*L, Bedside Blood Gas pCO2 (LAB) 27.6L, Bedside Blood Gas pO2 (LAB) 111H, Bedside Blood Gas HCO3 (LAB) 12.2*L, POC Blood Gas Total CO2 Calc 13L, Bedside Bl Gas O2 Saturation (Calc) 98, Bedside Arterial Blood Base Excess -15L 09/03/22 13:47: Urine Color YELLOW, Urine Clarity TURBID, Urine pH 8.5, Urine Specific [place] 1.015L, Urine Protein 1+H, Urine Glucose (UA) NEGATIVE, Urine Ketones 1+H, Urine Nitrite NEGATIVE, Urine Bilirubin NEGATIVE, Urine Urobilinogen 0.2, Urine Leukocyte Esterase 2+H, Urine RBC (Auto) TRACE-IH, Urine RBC NONE, Urine WBC 10- 25H, Urine Squamous Epithelial Cells 0-2, Urine Crystals PRESENTH, Urine Amorphous Sediment LARGE EDWARD PHOSPHATEH, Urine Bacteria LARGEH, Urine Casts NONE, Urine Mucus NEGATIVE, Urine Culture Indicated CULTURE PENDING 09/03/22 13:55: Prothrombin Time 16.9H, INR Comment 1.3, Activated Partial Thromboplast Time 28, Sodium Level 142, Potassium Level 3.4L, Chloride Level 111H, Carbon Dioxide Level 14L, Anion Gap 17H, Blood Urea Nitrogen 25H, Creatinine 2.03H, Estimat Glomerular Filtration Rate 24, BUN/Creatinine Ratio 12, Glucose Level 123H, Calcium Level 7.7L, Corrected Calcium 8.7, Total Bilirubin 0.3, Aspartate Amino Transf (AST/SGOT) 77H, Alanine Aminotransferase (ALT/SGPT) 23, Alkaline Phosphatase 207H, Troponin I 29.39*H, C-Reactive Protein 12.79H, Total Protein 5.6L, Albumin 2.8L 09/03/22 15:58: Lactic Acid Level 4.44*H 09/03/22 17:34: Glucometer 112H 09/03/22 17:58: Lactic Acid Level 2.28*H Assessment/Plan Assessment/Plan Assessment/Plan shock likely cardiogenic acute resp failure patient family understands risks and benefits of central line placement consent obtained chest x ray to follow. continue medical management PROCEDURE: Left u/s guided central line placement. Left neck prepped and draped sterile fashion. 3 mL of Lidocaine used to anesthetize the area under u/s guidance. The left IJ vein was accessed using u/s guidance, nonpulsatile dark blood drawn. Guide wire inserted through needle and needle removed. Dilator was then advanced over the wire and removed. Triple lumen catheter was then advanced over the wire and wire removed. All ports accessed and flushed. Catheter secured. Sterile bandage applied. Chest x ray pending. VAISHALI ALLEN DO Sep 03, 2022 19:51
[2022-09-03] MEDS: LACTATED RINGERS 1,000 ML IV SCH ×2 (19:52→23:59)
[2022-09-03] MEDS: ENOXAPARIN 60 MG/0.6 ML (LOVENOX) SYR SC SCH ×2 (19:52→21:19)
[2022-09-03] MEDS: NS IV 1000 ML 1,000 ML IV SCH (19:53)
[2022-09-03 20:27] VITALS: BP 78/54
[2022-09-03] MEDS ORDERED: ROSUVASTATIN 20 MG (CRESTOR) TABLET PO SCH (21:00)
[2022-09-03] MEDS ORDERED: VASOPRESSIN (PYXIS DRIP KIT) 20 UNIT/1 ML VIAL ONE (21:32)
[2022-09-03] MEDS ORDERED: NS (IVPB) 100 ML ONE (21:34)
[2022-09-03] MEDS: VASOPRESSIN INJECTION 20 UNIT in NS (IVPB) 100 ML IV SCH (21:43)
[2022-09-04 02:56] VITALS: BP 96/50
[2022-09-04] MEDS: CEFEPIME 1,000 MG/NS 50 ML IVPB IV SCH ×4 (03:33→15:48)
[2022-09-04] MEDS: NS IV 1000 ML 1,000 ML IV SCH ×2 (03:37→15:49)
[2022-09-04] MEDS: LACTATED RINGERS 1,000 ML IV SCH ×3 (04:16→16:20)
[2022-09-04] MEDS: EPINEPHrine 1 MG INJECTION 4 MG in NS (IVPB) 246 ML IV SCH ×2 (06:20→17:03)
[2022-09-04] MEDS: NOREPINEPHRINE 8 MG/250 ML 250 ML IV SCH ×2 (06:27→10:16)
[2022-09-04 06:37] LABS: ALBUMIN 2.5 GM/DL (3.2-4.5); POTASSIUM 3.1 MMOL/L (3.6-5.0)
[2022-09-04 06:38] LABS: CALCIUM 6.9 MG/DL (8.5-10.1)
[2022-09-04 06:40] LABS: TOTAL PROTEIN 5.1 GM/DL (6.4-8.2)
[2022-09-04 06:41] LABS: BILIRUBIN,TOTAL 0.6 MG/DL (0.1-1.0)
[2022-09-04 06:43] LABS: CREATININE SERUM 1.75 MG/DL (0.60-1.30)
[2022-09-04 07:02] VITALS: BP 108/74
[2022-09-04 07:30] LABS: BASOPHILS % (AUTO) 0 % (0-10)
[2022-09-04 07:31] LABS: EOSINOPHILS % (AUTO) 0 % (0-10); HEMATOCRIT 38 % (35-52); HEMOGLOBIN 12.9 g/dL (11.5-16.0); LYMPHOCYTES # (AUTO) 0.9 10^3/uL (1.0-4.0); LYMPHOCYTES % (AUTO) 5 % (12-44); MEAN CORPUSCULAR HEMOGLOBIN 34 pg (25-34); MEAN CORPUSCULAR HGB CONC 34 g/dL (32-36); MEAN CORPUSCULAR VOLUME 98 fL (80-99); MONOCYTES # (AUTO) 1.3 10^3/uL (0.0-1.0); MONOCYTES % (AUTO) 7 % (0-12); NEUTROPHILS # (AUTO) 16.2 10^3/uL (1.8-7.8); NEUTROPHILS % (AUTO) 87 % (42-75); WHITE BLOOD COUNT 18.7 10^3/uL (4.3-11.0)
[2022-09-04 07:38] LABS: PLATELET COUNT 16 10^3/uL (130-400)
[2022-09-04] MEDS ORDERED: NS IV 500 ML 500 ML IV PRN (08:00)
--- NOTE | 2022-09-04 08:41 | Progress Note ---
Standard Progress Note Progress Notes/Assess & Plan Date Seen by a Provider: Sep 04, 2022 Time Seen by a Provider: 08:39 Progress/Assessment & Plan The patients daughter spoke with the attending. The patients prognosis is very poor and her quality of life prior to this admission was poor. The family has decided to place the patient on comfort care and proceed with a terminal extubation later today. As such, cardiology will sign off. Please call if there is a change in her clinical status. YAIMA OLIVO JR, MD Sep 04, 2022 08:41
--- NOTE | 2022-09-04 08:59 | History & Physical-Hospitalist ---
History of Present Illness HPI/Chief Complaint This 82-year-old woman presents to the emergency room via EMS after being found unresponsive in her bed this morning by her side. She was feeling a little ill last night with a mild cough. This morning her son could not wake her up and her breathing appeared labored. EMS was activated. They found an unresponsive patient with sinus tachycardia, hypotension with initial systolic blood pressures in the 60s, and hypoxia that could not be measured with pulse oximetry in the field. GCS was 3. Patient was intubated in the field. She received etomidate, succinylcholine, and Versed. According to her son, she had recently been on methotrexate for rheumatoid arthritis but currently takes no prescribed medications. She does not presently have a primary care provider. She had been seeing her rheumatoid specialist in [place] but was released from care there because they determined she did not have rheumatoid arthritis. Patient has had severe chronic arthritis and pain problems in her left knee. This has caused significant immobility. Patient is cognitively intact at baseline according to her son. Patient was febrile with a temperature of about 103 for EMS. 2 L of IV fluid were hung by EMS. Fingerstick blood sugar was 150. Oxygen saturation resuscitated to the high 90s with oxygen support and BVM ventilation. Patient was found in her bed, and no trauma was suspected. Son reports patient was recently treated for UTI 3 to 4 weeks ago. EMS reported significantly coarse of breath sounds on their exam, but lungs appear clear now after intubation. Upon my arrival the patient was on mechanical ventilation not responsive only requiring a very low-dose of Precedex. In discussion with her granddaughter at the bedside she stated that her mother had previously told him that she was ready to go due to increasing frailty and poor quality of life at home wishing to avoid fci care at all cost. Granddaughter thought she had been febrile for some time at home with previous history of urinary tract infection. Date Seen 09/04/22 Time Seen by a Provider: 07:30 Attending Physician Melissa Crouch PCP Admitting Physician: Gretta Johnson MD Attending Physician: Gretta Johnson MD Referring Physician Date of Admission Sep 03, 2022 at 17:02 Home Medications & Allergies Home Medications Reviewed patient Home Medication Reconciliation performed by pharmacy medication reconciliations emanations analysis technician and/or nursing. Patients Allergies have been reviewed. Allergies Allergies Coded Allergies morphine (Verified Adverse Reaction, Unknown, Vomiting, 10/24/20) Past Aamduze-Dopjsl-Vkopnl Hx Patient Social History Tobacco Use?: No Pt feels they are or have been: No Immunizations Up To Date Tetanus Booster (TDap): Unknown Current Status Advance Directives: No Communicates: Does Not Communicate Primary Language: Yoruba Preferred Spoken Language: Yoruba Past Medical History Surgeries: Adenoidectomy, Hysterectomy, Orthopedic, Tonsillectomy Diverticulosis Osteoporosis, Arthritis, Fractures Rheumatoid Arthritis Previous Left Hip replacement Family Medical History No Pertinent Family Hx Review of Systems Constitutional: see HPI Physical Exam Physical Exam Vital Signs Vital Signs - First Documented 09/03/22 09/03/22 09/03/22 13:34 13:37 16:34 Temp 37.5 Pulse 120 Resp 20 B/P (MAP) 60/24 (36) Pulse Ox 100 O2 Delivery Mechanical Ventilator O2 Flow Rate 50.00 FiO2 50 Capillary Refill : Less Than 3 Seconds Height, Weight, BMI Height: '" Weight: lbs. oz. kg; 23.43 BMI Method: General Appearance: No Apparent Distress, Chronically ill Respiratory: Other (On mechanical ventilation coarse breath sounds bilaterally without wheezing. Few fine basilar rales noted) Cardiovascular: Regular Rate, Rhythm, Other ( very distant heart sounds difficult to hear over mechanical ventilation no murmurs appreciated.) Extremity: Other ( Trace upper and lower extremity edema. Staff report significant sacral ulceration tissue paperthin skin with evidence for significant global sarcopenia) Results Results/Procedures Labs Laboratory Tests 09/03/22 13:40 09/03/22 13:55 09/04/22 03:30 09/04/22 07:00 Patient resulted labs reviewed. Assessment/Plan Admission Diagnosis 1. Severe gram-negative sepsis with secondary hypotensive shock likely urinary tract in etiology. The patient has multiorgan failure and at baseline quite frail with granddaughter reporting that she had told her she was ready to . 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 Her platelet count has decreased to 16,000 so we did discuss the likelihood of diffuse bleeding if she lasts another day or 2. For this reason we have had to discontinue antiplatelet and all anticoagulant therapy. There is a potential for several other family members who may wish to be at the bedside. The daughter will be calling and we will hold comfort care measures which she is on board with in which grandmother has already voiced her desire for under circumstances such as these with essentially no hope for survival. We will plan discontinuing pressor support and extubation timing based on family member desire for now. Complex medical management. Admission Status: Inpatient Order (span 2 midnights) Reason for Inpatient Admission: See admission diagnosis Critical Care Critically Ill Patient GRETTA JOHNSON MD Sep 04, 2022 08:58
[2022-09-04] MEDS ORDERED: PANTOPRAZOLE 40 MG (PROTONIX) VIAL IV SCH (09:00)
[2022-09-04] MEDS ORDERED: TICAGRELOR 90 MG TABLET (BRILINTA) PO SCH (09:00)
[2022-09-04] MEDS ORDERED: ASPIRIN 81 MG CHEW (CHILDREN'S ASA) PO SCH (09:00)
[2022-09-04] MEDS ORDERED: morphine INJ 4 MG/ML 1 ML (VIAL/SYRINGE) ONE (09:20)
[2022-09-04] MEDS: VASOPRESSIN INJECTION 20 UNIT in NS (IVPB) 100 ML IV SCH ×2 (09:23→17:03)
[2022-09-04] MEDS: POTASSIUM CL 10MEQ/50ML IVPB 50 ML IV SCH ×4 (09:23→13:49)
[2022-09-04] MEDS ORDERED: ONDANSETRON 4 MG/2 ML (SDV) Z0FRAN ONE (09:28)
[2022-09-04] MEDS ORDERED: ONDANSETRON 4 MG/2 ML (SDV) Z0FRAN IVP PRN ×2 (09:30→18:00)
[2022-09-04] MEDS: morphine INJ 4 MG/ML 1 ML (VIAL/SYRINGE) IVP PRN ×5 (09:32→18:37)
--- NOTE | 2022-09-04 10:28 | Tele-ICU Progress Note ---
Subjective Date Seen by a Provider: Sep 04, 2022 Subjective/Events-last exam she is admitted with septic shock with nstemi. currently intubated .apparently has poor quality of life and DNR status. Currenly being considering for terminal extubation and comfort care. Reviewed with RN. Sepsis Event Evaluation Height, Weight, BMI Height: '" Weight: lbs. oz. kg; 23.43 BMI Method: Focused Exam Lactate Level 09/03/22 22:45: Lactic Acid Level 3.70*H 09/04/22 03:30: Lactic Acid Level 3.79*H 09/04/22 05:30: Lactic Acid Level 3.10*H Time of Focused Exam: 15:05 Exam Exam I made a virtual visit which was conducted using real time audio/video per protocol. Vital Signs Date Time Temp Pulse Resp B/P (MAP) Pulse Ox O2 Delivery O2 Flow Rate FiO2 09/04/22 10:16 74 98/66 09/04/22 09:00 38.0 74 27 98/66 (77) 100 Mechanical Ventilator 60.00 09/04/22 08:00 38.1 81 22 117/96 (103) 100 Mechanical Ventilator 60.00 09/04/22 07:56 38.0 09/04/22 07:02 80 27 100 50 09/04/22 07:00 38.0 90 20 108/74 (85) 100 Mechanical Ventilator 60.00 09/04/22 07:00 70 09/04/22 06:27 75 117/40 09/04/22 06:00 87 25 117/40 (65) 100 Mechanical Ventilator 60.00 09/04/22 05:00 72 24 139/55 (83) 100 Mechanical Ventilator 60.00 09/04/22 04:00 97 Mechanical Ventilator 60 09/04/22 04:00 78 27 118/95 (103) 100 Mechanical Ventilator 60.00 09/04/22 03:50 38.0 09/04/22 02:56 79 26 100 50 09/04/22 02:35 38.0 75 30 114/64 (81) 100 Mechanical Ventilator 50.00 09/04/22 02:00 80 26 108/75 (86) 100 Mechanical Ventilator 60.00 09/04/22 01:00 81 09/04/22 01:00 81 28 121/80 (94) 100 Mechanical Ventilator 60.00 09/04/22 01:00 81 09/04/22 00:00 36.5 09/04/22 00:00 82 28 106/69 (81) 100 Mechanical Ventilator 60.00 09/03/22 23:59 97 Mechanical Ventilator 60 09/03/22 23:47 37.9 09/03/22 23:19 78 27 99 60 09/03/22 23:00 80 23 99/74 (82) 99 Mechanical Ventilator 60.00 09/03/22 22:00 84 29 114/40 (64) 97 Mechanical Ventilator 60.00 09/03/22 21:51 84 119/88 09/03/22 21:43 88 116/74 09/03/22 21:00 87 29 101/37 (58) 97 Mechanical Ventilator 60.00 09/03/22 21:00 71/44 09/03/22 20:27 88 27 97 60 09/03/22 20:00 38.9 09/03/22 20:00 97 Mechanical Ventilator 60 09/03/22 20:00 87 27 97/31 (53) 97 Mechanical Ventilator 60.00 09/03/22 19:31 116 108/75 09/03/22 19:00 100 09/03/22 19:00 96 24 111/60 (77) 97 Mechanical Ventilator 60.00 09/03/22 18:31 39.3 09/03/22 18:29 116 108/75 09/03/22 17:53 39.5 09/03/22 17:40 116 09/03/22 17:30 94 Mechanical Ventilator 60 09/03/22 17:25 112 16 96 60 09/03/22 16:34 135 19 82/42 100 Mechanical Ventilator 50.00 09/03/22 16:03 127 82/42 09/03/22 13:45 120 60/32 09/03/22 13:37 37.5 120 20 60/24 (36) 97 Room Air 09/03/22 13:34 100 Mechanical Ventilator 50 I & O 09/04/22 07:00 Intake Total 3640 ml Output Total 475 ml Balance 3165 ml Height & Weight Height: '" Weight: lbs. oz. kg; 23.43 BMI Method: General Appearance: No Apparent Distress, Chronically ill HEENT: Normal ENT Inspection, Pharynx Normal, Other (Pupils equally round at about 3 mm) Neck: Normal Inspection; No JVD Respiratory: Other (On mechanical ventilation coarse breath sounds bilaterally without wheezing. Few fine basilar rales noted) Cardiovascular: Regular Rate, Rhythm, Other ( very distant heart sounds difficult to hear over mechanical ventilation no murmurs appreciated.) Capillary Refill: Less Than 3 Seconds Peripheral Pulses: 2+ Radial Pulses (L) Gastrointestinal: non tender, soft Extremity: Other ( Trace upper and lower extremity edema. Staff report significant sacral ulceration tissue paperthin skin with evidence for significant global sarcopenia) Neurologic/Psychiatric: Other (Unresponsive and intubated) Other comments PE PER RN Results Lab Laboratory Tests 09/03/22 13:40 09/03/22 13:55 09/04/22 03:30 09/04/22 07:00 Assessment/Plan Assessment/Plan SEPTIC SHOCK. NSTEMI. ACUTE RESPIRATORY FAILURE Terminal extubation will be carried out per family wishes once all of them say good bye to patient this am Critical Care: Ventilator Management Time spent with patient (mins): 15 BENNIE IZAGUIRRE MD Sep 04, 2022 10:28
[2022-09-04 10:36] VITALS: BP 122/86
[2022-09-04] MEDS ORDERED: ATROPINE 1% OPHTHALMIC SOLN 2 ML SL PRN (18:00)
[2022-09-04] MEDS ORDERED: ACETAMINOPHEN 650 MG SUPP (TYLENOL) PR PRN (18:00)
[2022-09-04] MEDS ORDERED: ARTIFICAL TEARS 0.4 ML UNIT DOSE (REFRESH PLUS) OU PRN (18:00)
[2022-09-04] MEDS ORDERED: SALIVA SUBSTITUTE 60 ML SPRAY(MOUTHKOTE) MM PRN (18:00)
[2022-09-04] MEDS ORDERED: RT-ALBUTEROL/IPRATROPIUM 3 ML (DUONEB) VIAL INH PRN (18:00)
[2022-09-04] MEDS ORDERED: LORazepam 1 MG (ATIVAN) TAB SL PRN (18:00)
[2022-09-04] MEDS ORDERED: BISACODYL 10 MG SUPP (DULCOLAX) PR PRN (18:00)
[2022-09-04] MEDS: SCOPOLAMINE 1.5 MG (TRANSDERM-SCOP) PATCH TOP SCH (18:37)
[2022-09-04] MEDS: LORazepam INJ 2 MG/ML (ATIVAN) VIAL IVP PRN (18:38)
[2022-09-05] MEDS: morphine INJ 4 MG/ML 1 ML (VIAL/SYRINGE) IVP PRN ×4 (03:39→20:37)
[2022-09-05] MEDS: LORazepam INJ 2 MG/ML (ATIVAN) VIAL IVP PRN ×2 (04:19→14:10)
[2022-09-05] MEDS ORDERED: MAGNESIUM 1 GM/100 ML IVPB 100 ML IV SCH (06:00)
[2022-09-05] MEDS ORDERED: POTASSIUM CL 10MEQ/50ML IVPB 50 ML IV SCH (06:00)
[2022-09-05] MEDS ORDERED: KCL 20 MEQ TAB (K-DUR) PO SCH (06:00)
--- NOTE | 2022-09-05 10:53 | Progress Note - Hospitalist ---
Subjective HPI/CC On Admission Date Seen by Provider: Sep 05, 2022 Time Seen by Provider: 10:00 This 82-year-old woman presents to the emergency room via EMS after being found unresponsive in her bed this morning by her side. She was feeling a little ill last night with a mild cough. This morning her son could not wake her up and her breathing appeared labored. EMS was activated. They found an unresponsive patient with sinus tachycardia, hypotension with initial systolic blood pressures in the 60s, and hypoxia that could not be measured with pulse oximetry in the field. GCS was 3. Patient was intubated in the field. She received etomidate, succinylcholine, and Versed. According to her son, she had recently been on methotrexate for rheumatoid arthritis but currently takes no prescribed medications. She does not presently have a primary care provider. She had been seeing her rheumatoid specialist in [place] but was released from care there because they determined she did not have rheumatoid arthritis. Patient has had severe chronic arthritis and pain problems in her left knee. This has caused significant immobility. Patient is cognitively intact at baseline according to her son. Patient was febrile with a temperature of about 103 for EMS. 2 L of IV fluid were hung by EMS. Fingerstick blood sugar was 150. Oxygen saturation resuscitated to the high 90s with oxygen support and BVM ventilation. Patient was found in her bed, and no trauma was suspected. Son reports patient was recently treated for UTI 3 to 4 weeks ago. EMS reported significantly coarse of breath sounds on their exam, but lungs appear clear now after intubation. Upon my arrival the patient was on mechanical ventilation not responsive only requiring a very low-dose of Precedex. In discussion with her granddaughter at the bedside she stated that her mother had previously told him that she was ready to go due to increasing frailty and poor quality of life at home wishing to avoid [facility] care at all cost. Granddaughter thought she had been febrile for some time at home with previous history of urinary tract infection. Subjective/Events-last exam Patient nonresponsive no evidence for respiratory distress normal respiratory pattern. Daughter at bedside reporting no evidence for distress this morning. She did require some morphine and Ativan yesterday for what sounds like Leonard- Olivares respiration end-of-life delirium. Focused Exam Lactate Level 09/03/22 22:45: Lactic Acid Level 3.70*H 09/04/22 03:30: Lactic Acid Level 3.79*H 09/04/22 05:30: Lactic Acid Level 3.10*H Time of Focused Exam: 15:05 Objective Exam Vital Signs Vital Signs Date Time Temp Pulse Resp B/P (MAP) Pulse Ox O2 Delivery O2 Flow Rate FiO2 09/05/22 07:56 Room Air 09/04/22 16:00 98 60 09/04/22 12:00 37.8 77 16 126/83 (97) 60.00 Capillary Refill : Less Than 3 Seconds General Appearance: No Apparent Distress Respiratory: Other (Coarse bilateral breath sounds without wheezing.) Cardiovascular: Regular Rate, Rhythm Extremity: Other ( 1-2+ edema of all extremities they are still warm and no mottling is noted.) Results/Procedures Lab Patient resulted labs reviewed. Assessment/Plan Assessment and Plan Assess & Plan/Chief Complaint 1. Severe gram-negative sepsis with secondary hypotensive shock likely urinary tract in etiology. The patient has multiorgan failure and at baseline quite frail with granddaughter reporting that she had told her she was ready to . 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 Her platelet count has decreased to 16,000 so we did discuss the likelihood of diffuse bleeding if she lasts another day or 2. For this reason we have had to discontinue antiplatelet and all anticoagulant therapy. There is a potential for several other family members who may wish to be at the bedside. The daughter will be calling and we will hold comfort care measures which she is on board with in which grandmother has already voiced her desire for under circumstances such as these with essentially no hope for survival. We will plan discontinuing pressor support and extubation timing based on family member desire for now. Complex medical management 09/05: Patient appears to be comfortable on comfort care. End-of-life expectations discussed with the daughter who is happy with the care that she is receiving. Critical Care Critically Ill Patient GRETTA JOHNSON MD Sep 05, 2022 10:52
[2022-09-05] MEDS: GLYCOPYRROLATE 0.2 MG/ML (ROBINUL) 2 ML VIAL IV PRN ×2 (16:31→20:37)
--- NOTE | 2022-09-06 08:44 | Progress Note - Hospitalist ---
Subjective HPI/CC On Admission Date Seen by Provider: Sep 06, 2022 Time Seen by Provider: 10:00 This 82-year-old woman presents to the emergency room via EMS after being found unresponsive in her bed this morning by her side. She was feeling a little ill last night with a mild cough. This morning her son could not wake her up and her breathing appeared labored. EMS was activated. They found an unresponsive patient with sinus tachycardia, hypotension with initial systolic blood pressures in the 60s, and hypoxia that could not be measured with pulse oximetry in the field. GCS was 3. Patient was intubated in the field. She received etomidate, succinylcholine, and Versed. According to her son, she had recently been on methotrexate for rheumatoid arthritis but currently takes no prescribed medications. She does not presently have a primary care provider. She had been seeing her rheumatoid specialist in [place] but was released from care there because they determined she did not have rheumatoid arthritis. Patient has had severe chronic arthritis and pain problems in her left knee. This has caused significant immobility. Patient is cognitively intact at baseline according to her son. Patient was febrile with a temperature of about 103 for EMS. 2 L of IV fluid were hung by EMS. Fingerstick blood sugar was 150. Oxygen saturation resuscitated to the high 90s with oxygen support and BVM ventilation. Patient was found in her bed, and no trauma was suspected. Son reports patient was recently treated for UTI 3 to 4 weeks ago. EMS reported significantly coarse of breath sounds on their exam, but lungs appear clear now after intubation. Upon my arrival the patient was on mechanical ventilation not responsive only requiring a very low-dose of Precedex. In discussion with her granddaughter at the bedside she stated that her mother had previously told him that she was ready to go due to increasing frailty and poor quality of life at home wishing to avoid detention care at all cost. Granddaughter thought she had been febrile for some time at home with previous history of urinary tract infection. Subjective/Events-last exam Pt is end of life Updated daughter at the bedside Needs placement Focused Exam Lactate Level 09/03/22 22:45: Lactic Acid Level 3.70*H 09/04/22 03:30: Lactic Acid Level 3.79*H 09/04/22 05:30: Lactic Acid Level 3.10*H Time of Focused Exam: 15:05 Objective Exam Vital Signs Vital Signs Date Time Temp Pulse Resp B/P (MAP) Pulse Ox O2 Delivery O2 Flow Rate FiO2 09/06/22 08:14 Room Air 09/04/22 16:00 98 60 09/04/22 12:00 37.8 77 16 126/83 (97) 60.00 Capillary Refill : Less Than 3 Seconds General Appearance: Other (comatose) Results/Procedures Lab Patient resulted labs reviewed. Assessment/Plan Assessment and Plan Assess & Plan/Chief Complaint Assessment/Plan: Comfort care protocol for end of life Critical Care Critically Ill Patient TONI NEAL DO Sep 06, 2022 08:44
[2022-09-06] MEDS: morphine INJ 4 MG/ML 1 ML (VIAL/SYRINGE) IVP PRN (12:47)
[2022-09-07] MEDS: morphine INJ 4 MG/ML 1 ML (VIAL/SYRINGE) IVP PRN ×3 (02:57→20:13)
--- NOTE | 2022-09-07 05:09 | Progress Note - Hospitalist ---
Subjective HPI/CC On Admission Date Seen by Provider: Sep 07, 2022 Time Seen by Provider: 09:00 This 82-year-old woman presents to the emergency room via EMS after being found unresponsive in her bed this morning by her side. She was feeling a little ill last night with a mild cough. This morning her son could not wake her up and her breathing appeared labored. EMS was activated. They found an unresponsive patient with sinus tachycardia, hypotension with initial systolic blood pressures in the 60s, and hypoxia that could not be measured with pulse oximetry in the field. GCS was 3. Patient was intubated in the field. She received etomidate, succinylcholine, and Versed. According to her son, she had recently been on methotrexate for rheumatoid arthritis but currently takes no prescribed medications. She does not presently have a primary care provider. She had been seeing her rheumatoid specialist in [place] but was released from care there because they determined she did not have rheumatoid arthritis. Patient has had severe chronic arthritis and pain problems in her left knee. This has caused significant immobility. Patient is cognitively intact at baseline according to her son. Patient was febrile with a temperature of about 103 for EMS. 2 L of IV fluid were hung by EMS. Fingerstick blood sugar was 150. Oxygen saturation resuscitated to the high 90s with oxygen support and BVM ventilation. Patient was found in her bed, and no trauma was suspected. Son reports patient was recently treated for UTI 3 to 4 weeks ago. EMS reported significantly coarse of breath sounds on their exam, but lungs appear clear now after intubation. Upon my arrival the patient was on mechanical ventilation not responsive only requiring a very low-dose of Precedex. In discussion with her granddaughter at the bedside she stated that her mother had previously told him that she was ready to go due to increasing frailty and poor quality of life at home wishing to avoid prison care at all cost. Granddaughter thought she had been febrile for some time at home with previous history of urinary tract infection. Subjective/Events-last exam End of life care still continues Daughter is at the bedside Needs placement for end of life care Focused Exam Lactate Level Time of Focused Exam: 15:05 Objective Exam Vital Signs Vital Signs Date Time Temp Pulse Resp B/P (MAP) Pulse Ox O2 Delivery O2 Flow Rate FiO2 09/07/22 20:15 Room Air 09/07/22 12:12 37.8 09/07/22 08:06 98 0.00 0 09/04/22 12:00 77 16 126/83 (97) Capillary Refill : Less Than 3 Seconds General Appearance: Other (comastose) Results/Procedures Lab Patient resulted labs reviewed. Assessment/Plan Assessment and Plan Assess & Plan/Chief Complaint Assessment/Plan: Comfort care protocol for end of life Critical Care Critically Ill Patient TONI NEAL DO Sep 07, 2022 05:09
[2022-09-07] MEDS: GLYCOPYRROLATE 0.2 MG/ML (ROBINUL) 2 ML VIAL IV PRN (11:41)
[2022-09-07] MEDS: LORazepam INJ 2 MG/ML (ATIVAN) VIAL IVP PRN ×2 (11:42→20:13)
[2022-09-07] MEDS: SCOPOLAMINE 1.5 MG (TRANSDERM-SCOP) PATCH TOP SCH (18:41)
--- NOTE | 2022-09-08 06:55 | Progress Note - Hospitalist ---
Subjective HPI/CC On Admission Date Seen by Provider: Sep 08, 2022 Time Seen by Provider: 09:00 This 82-year-old woman presents to the emergency room via EMS after being found unresponsive in her bed this morning by her side. She was feeling a little ill last night with a mild cough. This morning her son could not wake her up and her breathing appeared labored. EMS was activated. They found an unresponsive patient with sinus tachycardia, hypotension with initial systolic blood pressures in the 60s, and hypoxia that could not be measured with pulse oximetry in the field. GCS was 3. Patient was intubated in the field. She received etomidate, succinylcholine, and Versed. According to her son, she had recently been on methotrexate for rheumatoid arthritis but currently takes no prescribed medications. She does not presently have a primary care provider. She had been seeing her rheumatoid specialist in [place] but was released from care there because they determined she did not have rheumatoid arthritis. Patient has had severe chronic arthritis and pain problems in her left knee. This has caused significant immobility. Patient is cognitively intact at baseline according to her son. Patient was febrile with a temperature of about 103 for EMS. 2 L of IV fluid were hung by EMS. Fingerstick blood sugar was 150. Oxygen saturation resuscitated to the high 90s with oxygen support and BVM ventilation. Patient was found in her bed, and no trauma was suspected. Son reports patient was recently treated for UTI 3 to 4 weeks ago. EMS reported significantly coarse of breath sounds on their exam, but lungs appear clear now after intubation. Upon my arrival the patient was on mechanical ventilation not responsive only requiring a very low-dose of Precedex. In discussion with her granddaughter at the bedside she stated that her mother had previously told him that she was ready to go due to increasing frailty and poor quality of life at home wishing to avoid longterm care at all cost. Granddaughter thought she had been febrile for some time at home with previous history of urinary tract infection. Subjective/Events-last exam Pt still at end of life Will place at home on hospice on Tuesday if she hasn't Focused Exam Time of Focused Exam: 15:05 Objective Exam Vital Signs Vital Signs Date Time Temp Pulse Resp B/P (MAP) Pulse Ox O2 Delivery O2 Flow Rate FiO2 09/08/22 20:10 Room Air 09/07/22 12:12 37.8 09/07/22 08:06 98 0.00 0 09/04/22 12:00 77 16 126/83 (97) Capillary Refill : Less Than 3 Seconds General Appearance: Chronically ill, Other (semi-comatose) Results/Procedures Lab Patient resulted labs reviewed. Assessment/Plan Assessment and Plan Assess & Plan/Chief Complaint Assessment/Plan: Comfort care protocol for end of life Critical Care Critically Ill Patient TONI NEAL DO Sep 08, 2022 06:55
--- NOTE | 2022-09-08 19:17 | Physician Query Clarification ---
Physician Query-General Query to Physician: The medical record reflects the following clinical scenario: The patient, in the setting of History/Risk factors, Both STEMI and NSTEMI is documented in the Medical record Severe sepsis with Septic shock, Respiratory failure intubate prior to arrival. Clinical Findings "Her initial electrocardiogram showed questionable ST elevation in V4 and V5 but in the setting of a left bundle branch type conduction delay...follow-up electrocardiogram apparently showed anterior ST elevation" Troponin I 29.39, 75.155 then 36.867 Treatment Cardiology Consult with this treatment plan: aspirin, ticagrelor, enoxaparin, and statin medication. "She is not currently a candidate for beta- arsh due to her shock." Question: Do you agree with the impression of STEMI of anterolateral wall per Dr. Nilsa Morillo? 1. Yes; will document STEMI (anterolateral wall), present on admission in the Progress Notes 2. No; will continue current documentation in the Progress Notes 3. Other; will document explanation of clinical findings 4. Clinically undetermined; no explanation for clinical findings Please clarify and document your clinical opinion in the Progress Notes and Discharge Summary including the definitive and/or presumptive diagnosis, (suspected or probable), related to the above clinical findings. Please include clinical findings supporting your diagnosis. In responding to this query, please exercise your independent professional judgment. The purpose of this communication is to more accurately reflect the complexity of your patients condition. The fact that a question is asked does not imply that any particular answer is desired or expected. Thank you for timely response to this clarification. Erika Solano RN, MSN Clinical Executive Vice President And Chief Operating Officer [email or web address] PHYSICIAN RESPONSE: Based on the clinical findings in the record, please respond to the query above on this document as an addendum. Physician Response: Physician Response defer to admitting doctor If you have questions please contact: Wired Sweatband Cutter: Ext: Thank you for your time and cooperation. Clinical Executive Vice President And Chief Operating Officer/Wired Sweatband Cutter This is a permanent part of the medical record ERIKA SOLANO Sep 08, 2022 19:17 TONI NEAL DO Sep 08, 2022 19:32
[2022-09-08] MEDS: LORazepam INJ 2 MG/ML (ATIVAN) VIAL IVP PRN (20:57)
[2022-09-08] MEDS: GLYCOPYRROLATE 0.2 MG/ML (ROBINUL) 2 ML VIAL IV PRN (20:57)
[2022-09-08] MEDS: morphine INJ 4 MG/ML 1 ML (VIAL/SYRINGE) IVP PRN (20:57)
[2022-09-09] MEDS: morphine INJ 4 MG/ML 1 ML (VIAL/SYRINGE) IVP PRN ×3 (11:06→22:43)
--- NOTE | 2022-09-09 11:24 | Progress Note - Hospitalist ---
Subjective HPI/CC On Admission Date Seen by Provider: Sep 09, 2022 Time Seen by Provider: 11:20 This 82-year-old woman presents to the emergency room via EMS after being found unresponsive in her bed this morning by her side. She was feeling a little ill last night with a mild cough. This morning her son could not wake her up and her breathing appeared labored. EMS was activated. They found an unresponsive patient with sinus tachycardia, hypotension with initial systolic blood pressures in the 60s, and hypoxia that could not be measured with pulse oximetry in the field. GCS was 3. Patient was intubated in the field. She received etomidate, succinylcholine, and Versed. According to her son, she had recently been on methotrexate for rheumatoid arthritis but currently takes no prescribed medications. She does not presently have a primary care provider. She had been seeing her rheumatoid specialist in [place] but was released from care there because they determined she did not have rheumatoid arthritis. Patient has had severe chronic arthritis and pain problems in her left knee. This has caused significant immobility. Patient is cognitively intact at baseline according to her son. Patient was febrile with a temperature of about 103 for EMS. 2 L of IV fluid were hung by EMS. Fingerstick blood sugar was 150. Oxygen saturation resuscitated to the high 90s with oxygen support and BVM ventilation. Patient was found in her bed, and no trauma was suspected. Son reports patient was recently treated for UTI 3 to 4 weeks ago. EMS reported significantly coarse of breath sounds on their exam, but lungs appear clear now after intubation. Upon my arrival the patient was on mechanical ventilation not responsive only requiring a very low-dose of Precedex. In discussion with her granddaughter at the bedside she stated that her mother had previously told him that she was ready to go due to increasing frailty and poor quality of life at home wishing to avoid [facility] care at all cost. Granddaughter thought she had been febrile for some time at home with previous history of urinary tract infection. Subjective/Events-last exam Comatose Focused Exam Time of Focused Exam: 15:05 Objective Exam Vital Signs Vital Signs Date Time Temp Pulse Resp B/P (MAP) Pulse Ox O2 Delivery O2 Flow Rate FiO2 09/09/22 20:50 Room Air 09/07/22 12:12 37.8 09/07/22 08:06 98 0.00 0 09/04/22 12:00 77 16 126/83 (97) Capillary Refill : Less Than 3 Seconds General Appearance: Chronically ill, Other (Comatose) Results/Procedures Lab Patient resulted labs reviewed. Assessment/Plan Assessment and Plan Assess & Plan/Chief Complaint Assessment/Plan: Comfort care protocol for end of life Critical Care Critically Ill Patient TONI NEAL DO Sep 09, 2022 11:24
[2022-09-09] MEDS: LORazepam INJ 2 MG/ML (ATIVAN) VIAL IVP PRN (22:43)
[2022-09-10] MEDS ORDERED: LORA2ORA PO (06:05)
[2022-09-10] MEDS ORDERED: MORP100S7 PO (06:05)
--- NOTE | 2022-09-10 06:05 | Discharge Summary ---
Discharge Summary Hospital Course Was the Problem List Reviewed?: Yes Problems/Dx: (1) ST elevation myocardial infarction (STEMI) of anterolateral wall, initial episode of care (2) Shock (3) Acute kidney injury (4) Acute respiratory failure with hypoxemia Hospital Course Date of Admission: Sep 03, 2022 at 17:02 Admission Diagnosis : [facility] [place] Date [facility]: 09/10/22 Discharge Diagnosis: [ ] Hospital Course: Lengthy hospital course after she received critical care management for multisystem organ failure and ultimately transition to comfort care protocol. Due to aggressive medication given the end-of-life status became prolonged and she was moved to home with hospice with comfort care meds discharged with her. Labs and Pending Lab Test: Microbiology 09/03/22 Gram Stain - Final, Complete 09/03/22 Sputum Culture - Final, Complete Usual upper respiratory angel 09/03/22 Blood Culture - Final, Complete No growth 09/03/22 Urine Culture - Final, Complete Escherichia coli Home Meds Active Ondansetron Odt (Ondansetron) 4 Mg Tab.rapdis 4 Mg PO Q6H PRN Hydrocodone-Acetamin 5-325 mg (Hydrocodone/Acetaminophen) 1 Each Tablet 1 Tab PO Q8H PRN Reported Refresh Tears (Carboxymethylcellulose Sodium) 15 Ml Drops 2 Drops OU PRN PRN Tylenol Extra Strength (Acetaminophen) 500 Mg Tablet 500 Mg PO DAILY Multivitamin 1 Each Tablet 1 Each PO DAILY Methotrexate (Methotrexate Sodium) 2.5 Mg Tablet 2.5 Mg PO TUE TAKES 2 (2.5MG) TABS ON TUESDAY AND TUESDAY ALSO TAKES 1 (2.5MG) TAB ON TUESDAY Methotrexate (Methotrexate Sodium) 2.5 Mg Tablet 5 Mg PO TUE,TUE TAKES 2 (2.5MG) TABS ON TUESDAY AND TUESDAY ALSO TAKES 1 (2.5MG) TAB ON TUESDAY Assessment/Pt Instructions Home on hospice Discharge Planning: <30 minutes discharge planning Discharge Physical Examination Vital Signs Vital Signs Date Time Temp Pulse Resp B/P (MAP) Pulse Ox O2 Delivery O2 Flow Rate FiO2 09/09/22 20:50 Room Air 09/07/22 12:12 37.8 09/07/22 08:06 98 0.00 0 09/04/22 12:00 77 16 126/83 (97) Allergies: Coded Allergies: No Known Drug Allergies (Unverified , 09/10/22) Discharge Summary Date of Admission Sep 03, 2022 at 17:02 Date of Discharge Discharge Date: Sep 10, 2022 Admission Diagnosis 1. Severe gram-negative sepsis with secondary hypotensive shock likely urinary tract in etiology. The patient has multiorgan failure and at baseline quite frail with granddaughter reporting that she had told her she was ready to . 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 Her plat elet count has decreased to 16,000 so we did discuss the likelihood of diffuse bleeding if she lasts another day or 2. For this reason we have had to discontinue antiplatelet and all anticoagulant therapy. There is a potential for several other family members who may wish to be at the bedside. The daughter will be calling and we will hold comfort care measures which she is on board with in which grandmother has already voiced her desire for under circumstances such as these with essentially no hope for survival. We will plan discontinuing pressor support and extubation timing based on family member desire for now. Complex medical management. Comfort Measures/ End of Life Care: Comfort Measures Discharge Diagnosis Assessment/Plan: Comfort care protocol for end of life (1) ST elevation myocardial infarction (STEMI) of anterolateral wall, initial episode of care Assessment & Plan: It appears as though she may be suffering an acute anterolateral ST elevation myocardial infarction. She was unresponsive on arrival to the outside emergency room and was now sedated and paralyzed on a mechanical ventilator. She is a DNR. She is of advanced age and is currently in shock and has acute kidney injury. All of these clinical factors put her at increased risk of complications from cardiac catheterization. I recommend we treat her with guideline directed medical therapy with aspirin, ticagrelor, enoxaparin, and statin medication. She is not currently a candidate for beta- arsh due to her shock. (2) Shock Assessment & Plan: I suspect she has cardiogenic shock but also possibly septic shock. I have ordered a stat echocardiogram. She is on epinephrine and norepinephrine infusions. I have consulted general surgery for central line placement. (3) Acute kidney injury Assessment & Plan: She has been receiving IV fluids. I suspect the acute kidney injury is multifactorial. Her renal function will need to be followed closely. (4) Acute respiratory failure with hypoxemia Assessment & Plan: Most likely multifactorial. She is currently intubated, sedated and on mechanical ventilation. The primary team will be managing the ventilator along with the eICU. TONI NEAL DO Sep 10, 2022 06:05
[2022-09-10] MEDS: morphine INJ 4 MG/ML 1 ML (VIAL/SYRINGE) IVP PRN (11:24)
== END 2022-09-10 11:27 | disposition hospice, home (50) | DRG 871 ==
LOC: EDUNIT# 13:34 → ER FS 13:35 → ICU 17:02 → 4TH 09-04 18:02
PROVIDERS: ADMIT Internal Medicine; ATTEND Internal Medicine
PROC: 5A1945Z Respiratory Ventilation, 24-96 Consecutive Hours (ICD-10-PCS; principal; 2022-09-03)
PROC: 0BH17EZ Insertion of Endotracheal Airway into Trachea, Via Natural or Artificial Opening (ICD-10-PCS; 2022-09-03)
DX: A41.50 Gram-negative sepsis, unspecified (principal); J96.01 Acute respiratory failure with hypoxia; R65.21 Severe sepsis with septic shock; R57.0 Cardiogenic shock; N39.0 Urinary tract infection, site not specified; N17.9 Acute kidney failure, unspecified; Z66 Do not resuscitate; Z51.5 Encounter for palliative care; Z20.822 Contact with and (suspected) exposure to COVID-19
CPT/HCPCS: 36415; 51702; 70450; 71045; 80053; 81000; 82805; 82947; 83605; 84145; 84484; 85007; 85025; 85027; 85610; 85730; 86141; 87040; 87070; 87077; 87081; 87088; 87186; 87205; 87636; 93005; 93306; 94002; 94003; 94760; 94799; 96365; 96372; 96375; 99291